=== PATIENT | male | born 1965 | race Native Hawaiian/Other Pacific Islander ===

== ENCOUNTER 2021-06-13 19:49 | Inpatient (IN) | payer SELFPAY ==
[2021-06-14 00:16] LABS: Hematocrit 35.9 % (35.5-45.6); Hemoglobin 12.4 gm/dl (11.8-15.2); Mean Corpuscular HGB Conc 35 % (32-34); Mean Corpuscular Volume 97 fl (84-94); Platelet Count 388 K/mm3 (140-440); Red Cell Distribution Width 12.1 % (13.2-15.2)
[2021-06-14 00:35] LABS: Alanine Aminotransferase 111 units/L (7-56); Albumin 3.1 g/dL (3.9-5); Bilirubin,Direct 0.3 mg/dL (0-0.2); Blood Urea Nitrogen 9 mg/dL (9-20); Calcium 7.6 mg/dL (8.4-10.2); Hemolysis Index 19
[2021-06-14 00:37] LABS: BUN/Creatinine Ratio 23
--- NOTE | 2021-06-14 01:15 | XRay Report ---
CHEST 1 VIEW INDICATION / CLINICAL INFORMATION: sob. COMPARISON: None available. FINDINGS: SUPPORT DEVICES: None. HEART / MEDIASTINUM: No significant abnormality. LUNGS / PLEURA: Nonspecific bilateral interstitial prominence without focal consolidation. A componen t of chronic disease is thought to exist. BONES: No significant osseous abnormality. ADDITIONAL FINDINGS: No significant additional findings. IMPRESSION: 1. No active cardiopulmonary disease. Signer Name: Markus Lira II, MD Signed: 06/14/2021 1:10 AM Workstation Name: [id number]
--- NOTE | 2021-06-14 02:16 | Cat Scan Report ---
CT HEAD WITHOUT CONTRAST INDICATION / CLINICAL INFORMATION: AMS. TECHNIQUE: CT head was performed without administration of intravenous contrast. All CT scans at this location are performed using CT dose reduction for ALARA by means of automated exposure control. COMPARISON: None available. FINDINGS: CEREBRAL HEMISPHERES: Generalized atrophy and bilateral regions of periventricular white matter hypoa ttenuation compatible with microvascular ischemia are demonstrated. No midline shift. Basal cisterns patent. HEMORRHAGE: None. CEREBELLUM / BRAINSTEM: No significant abnormality. ORBITS: No significant abnormality. SOFT TISSUES: No significant abnormality. SKULL: No significant abnormality. PARANASAL SINUSES / MASTOID AIR CELLS: Mild mucoperiosteal thickening of the bilateral maxillary sinu ses. Partial opacification of anterior ethmoid air cells. ADDITIONAL FINDINGS: None. IMPRESSION: 1. No acute intracranial abnormality. Signer Name: Markus Lira II, MD Signed: 06/14/2021 2:11 AM Workstation Name: [id number]
--- NOTE | 2021-06-14 02:22 | Cat Scan Report ---
CT ABDOMEN AND PELVIS WITH CONTRAST INDICATION / CLINICAL INFORMATION: Lower ABD Pain. TECHNIQUE: Axial CT images were obtained through the abdomen and pelvis after 100 cc Omnipaque [address] scans at this location are performed using CT dose reduction for ALARA by means of automated exposure control. COMPARISON: None available. FINDINGS: LOWER CHEST: Moderate dependent atelectatic changes are noted within the lower lobes. LIVER: Mild hepatic steatosis and excluded. Portal veins patent. Hepatic veins patent. GALLBLADDER: Contracted BILE DUCTS: No significant abnormality. SPLEEN: No significant abnormality. PANCREAS: No significant abnormality. ADRENALS: No significant abnormality. KIDNEYS/URETERS: Mild to moderate bilateral hydronephrosis. No urolithiasis. STOMACH / DUODENUM / SMALL BOWEL: The stomach, duodenum, and small bowel demonstrate no significant a bnormality. No specific abnormality of the mesentery demonstrated. COLON: No significant abnormality. APPENDIX: No significant abnormality. PERITONEUM: No free air or free fluid are present within the abdomen or pelvis. LYMPH NODES: No significant adenopathy. AORTA / ARTERIES: Mild atherosclerotic calcification without acute abnormality. IVC / VEINS: No significant abnormality. URINARY BLADDER: Moderate to severe distention of the urinary bladder is demonstrated without focal l esion of the bladder wall. REPRODUCTIVE ORGANS: Prostate grossly normal in size. ADDITIONAL ABDOMINAL/PELVIC FINDINGS: The left psoas appears enlarged with central hypoattenuating re gion along the anterior margin as demonstrated image #110. This lesion measures 21 x 18 mm. This abut s the left anterolateral L4-5 interspace, no significant abnormality of the interspace and no obvious pannus is associated. SKELETAL SYSTEM: Multilevel degenerative changes of the lumbar spine are present with loss of interve rtebral disc space at L5-S1 moderate to severe back disc phenomenon present. Multilevel facet arthrop athy mild to moderate within the lower lumbar spine. IMPRESSION: 1. Expansile appearance of the left psoas muscle with central hypoattenuating region possibly reflect autumn of abscess, hematoma not excluded. 2. Moderately severe distention of the urinary bladder with associated bilateral hydronephrosis helga tible with a component of reflux. Decompression with Banks catheter recommended. 3. No obvious obstructing lesion within the prostate or bladder base to suggest source of bladder out let obstruction. Neurogenic bladder could be considered. Signer Name: Markus Lira II, MD Signed: 06/14/2021 2:18 AM Workstation Name: [id number]
--- NOTE | 2021-06-14 02:33 | Emergency Department Report ---
ED Altered Mental Status HPI - General Chief Complaint: Pain General Stated Complaint: BODY PAIN Time Seen by Provider: 06/13/21 23:17 Source: patient Mode of arrival: Ambulatory Limitations: No Limitations - History of Present Illness Initial Comments: 59-year-old male presents emergency department with his family who reports she has been having 1 to 2-week history of progressively worsening weakness, fatigue, shortness of breath with occasional chest pain dizziness and sometimes altered mental status which has been waxing and waning and progressively worsening fashion since the onset. At the beginning of this month he was ambulatory on his own power and behaving normally and fully functional which significantly changed in the last 2 weeks currently over the last 2 to 3 days he has been unable to stand up or move his legs without assistance. A reports no fever, chills, sweats. No chest pain palpitation nausea vomiting has been having some increased urinary frequency. MD Complaint: altered mental status, confusion, weakness -: Gradual Associated Symptoms: denies other symptoms - Related Data Allergies Allergy/AdvReac Type Severity Reaction Status Date / Time No Known Allergies Allergy Verified 06/13/21 20:55 ED Review of Systems ROS: Stated complaint: BODY PAIN Other details as noted in HPI Comment: All other systems reviewed and negative ED Past Medical Hx - Past Medical History Previous Medical History?: No - Surgical History Past Surgical History?: No - Social History Smoking Status: Never Smoker Substance Use Type: None ED Physical Exam - General Limitations: No Limitations - Level of Consciousness 1a. Level of Consciousness: alert/keenly responsive - LOC Questions 1b. LOC Questions: answers both correctly - LOC Command 1c. LOC Commands: performs tasks correctly - Best Gaze 2. Best Gaze: normal - Visual 3. Visual: no visual loss - Facial Palsy 4. Facial Palsy: normal symmetrical movement - Motor Arm 5a. Motor Arm Left: no drift 5b. Motor Arm Right: no drift - Motor Leg 6a. Motor Leg Left: drift 6b. Motor Leg Right: drift - Limb Ataxia 7. Limb Ataxia: absent - Sensory 8. Sensory: normal - Best Language 9. Best Language: no aphasia - Dysarthria 10. Dysarthria: normal - Extinction and Inattention 11. Extinction/Inattention: no abnormality - Scoring Total Score: 2 Stroke Severity: Minor Stroke ED Course Vital Signs 06/13/21 06/14/21 20:49 03:34 Temperature 100.0 F H Pulse Rate 101 H 88 Respiratory 18 18 Rate Blood Pressure 137/83 Blood Pressure 125/85 [Left] O2 Sat by Pulse 99 100 Oximetry - Lab Data Result diagrams: 06/14/21 00:01 06/14/21 00:01 Lab Results 06/14/21 06/14/21 06/14/21 Range/Units 00:01 00:01 00:01 WBC 18.6 H (4.5-11.0) K/mm3 RBC 3.70 (3.65-5.03) M/mm3 Hgb 12.4 (11.8-15.2) gm/dl Hct 35.9 (35.5-45.6) % MCV 97 H (84-94) fl MCH 34 H (28-32) pg MCHC 35 H (32-34) % RDW 12.1 L (13.2-15.2) % Plt Count 388 (140-440) K/mm3 Add Manual Diff Complete Total Counted 100 Seg Neuts % (Manual) 90.0 H (40.0-70.0) % Band Neutrophils % 0 % Lymphocytes % (Manual) 5.0 L (13.4-35.0) % Reactive Lymphs % (Man) 0 % Monocytes % (Manual) 5.0 (0.0-7.3) % Eosinophils % (Manual) 0 (0.0-4.3) % Basophils % (Manual) 0 (0.0-1.8) % Metamyelocytes % 0 % Myelocytes % 0 % Promyelocytes % 0 % Blast Cells % 0 % Nucleated RBC % Not Reportable Seg Neutrophils # Man 16.7 H (1.8-7.7) K/mm3 Band Neutrophils # 0.0 K/mm3 Lymphocytes # (Manual) 0.9 L (1.2-5.4) K/mm3 Abs React Lymphs (Man) 0.0 K/mm3 Monocytes # (Manual) 0.9 H (0.0-0.8) K/mm3 Eosinophils # (Manual) 0.0 (0.0-0.4) K/mm3 Basophils # (Manual) 0.0 (0.0-0.1) K/mm3 Metamyelocytes # 0.0 K/mm3 Myelocytes # 0.0 K/mm3 Promyelocytes # 0.0 K/mm3 Blast Cells # 0.0 K/mm3 WBC Morphology Not Reportable Hypersegmented Neuts Not Reportable Hyposegmented Neuts Not Reportable Hypogranular Neuts Not Reportable Smudge Cells Not Reportable Toxic Granulation Not Reportable Toxic Vacuolation Not Reportable Dohle Bodies Not Reportable Pelger-Huet Anomaly Not Reportable Reva Rods Not Reportable Platelet Estimate Consistent w auto Clumped Platelets Not Reportable Plt Clumps, EDTA Not Reportable Large Platelets Not Reportable Giant Platelets Not Reportable Platelet Satelliting Not Reportable Plt Morphology Comment Not Reportable RBC Morphology Not Reportable Dimorphic RBCs Not Reportable Polychromasia Not Reportable Hypochromasia Not Reportable Poikilocytosis Not Reportable Anisocytosis 1+ Microcytosis Not Reportable Macrocytosis Not Reportable Spherocytes Not Reportable Pappenheimer Bodies Not Reportable Sickle Cells Not Reportable Target Cells Not Reportable Tear Drop Cells Not Reportable Ovalocytes Not Reportable Helmet Cells Not Reportable [place]osta-[place] Bodies Not Reportable [place] Rings Not Reportable [place] Cells Not Reportable Bite Cells Not Reportable Crenated Cell Not Reportable Elliptocytes Not Reportable Acanthocytes (Spur) Not Reportable Rouleaux Not Reportable Hemoglobin C Crystals Not Reportable Schistocytes Not Reportable Malaria parasites Not Reportable Warner Bodies Not Reportable Hem Pathologist Commnt No Sodium 122 L (137-145) mmol/L Potassium 3.4 L (3.6-5.0) mmol/L Chloride 79.0 L (98-107) mmol/L Carbon Dioxide 29 (22-30) mmol/L Anion Gap 17 mmol/L BUN 9 (9-20) mg/dL Creatinine 0.4 L (0.8-1.3) mg/dL Estimated GFR > 60 ml/min BUN/Creatinine Ratio 23 % Glucose 122 H (75-100) mg/dL Lactic Acid (0.7-2.0) mmol/L Calcium 7.6 L (8.4-10.2) mg/dL Magnesium (1.7-2.3) mg/dL Total Bilirubin 1.00 (0.1-1.2) mg/dL Direct Bilirubin 0.3 H (0-0.2) mg/dL Indirect Bilirubin 0.7 mg/dL AST 112 H (5-40) units/L ALT 111 H (7-56) units/L Alkaline Phosphatase 129 (35-129) units/L Ammonia (25-60) umol/L Troponin T < 0.010 (0.00-0.029) ng/mL Total Protein 6.6 (6.3-8.2) g/dL Albumin 3.1 L (3.9-5) g/dL Albumin/Globulin Ratio 0.9 % Lipase 49 (13-60) units/L Urine Color (Yellow) Urine Turbidity (Clear) Urine pH (5.0-7.0) Ur Specific [place] (1.003-1.030) Urine Protein (Negative) mg/dL Urine Glucose (UA) (Negative) mg/dL Urine Ketones (Negative) mg/dL Urine Blood (Negative) Urine Nitrite (Negative) Urine Bilirubin (Negative) Urine Urobilinogen (<2.0) mg/dL Ur Leukocyte Esterase (Negative) Urine WBC (Auto) (0.0-6.0) /HPF Urine RBC (Auto) (0.0-6.0) /HPF U Epithel Cells (Auto) (0-13.0) /HPF Urine Bacteria (Auto) (Negative) /HPF 06/14/21 06/14/21 06/14/21 Range/Units 00:01 00:01 04:30 WBC (4.5-11.0) K/mm3 RBC (3.65-5.03) M/mm3 Hgb (11.8-15.2) gm/dl Hct (35.5-45.6) % MCV (84-94) fl MCH (28-32) pg MCHC (32-34) % RDW (13.2-15.2) % Plt Count (140-440) K/mm3 Add Manual Diff Total Counted Seg Neuts % (Manual) (40.0-70.0) % Band Neutrophils % % Lymphocytes % (Manual) (13.4-35.0) % Reactive Lymphs % (Man) % Monocytes % (Manual) (0.0-7.3) % Eosinophils % (Manual) (0.0-4.3) % Basophils % (Manual) (0.0-1.8) % Metamyelocytes % % Myelocytes % % Promyelocytes % % Blast Cells % % Nucleated RBC % Seg Neutrophils # Man (1.8-7.7) K/mm3 Band Neutrophils # K/mm3 Lymphocytes # (Manual) (1.2-5.4) K/mm3 Abs React Lymphs (Man) K/mm3 Monocytes # (Manual) (0.0-0.8) K/mm3 Eosinophils # (Manual) (0.0-0.4) K/mm3 Basophils # (Manual) (0.0-0.1) K/mm3 Metamyelocytes # K/mm3 Myelocytes # K/mm3 Promyelocytes # K/mm3 Blast Cells # K/mm3 WBC Morphology Hypersegmented Neuts Hyposegmented Neuts Hypogranular Neuts Smudge Cells Toxic Granulation Toxic Vacuolation Dohle Bodies Pelger-Huet Anomaly Reva Rods Platelet Estimate Clumped Platelets Plt Clumps, EDTA Large Platelets Giant Platelets Platelet Satelliting Plt Morphology Comment RBC Morphology Dimorphic RBCs Polychromasia Hypochromasia Poikilocytosis Anisocytosis Microcytosis Macrocytosis Spherocytes Pappenheimer Bodies Sickle Cells Target Cells Tear Drop Cells Ovalocytes Helmet Cells Acosta-Laona Bodies [place] Rings Glo Cells Bite Cells Crenated Cell Elliptocytes Acanthocytes (Spur) Rouleaux Hemoglobin C Crystals Schistocytes Malaria parasites Warner Bodies Hem Pathologist Commnt Sodium (137-145) mmol/L Potassium (3.6-5.0) mmol/L Chloride (98-107) mmol/L Carbon Dioxide (22-30) mmol/L Anion Gap mmol/L BUN (9-20) mg/dL Creatinine (0.8-1.3) mg/dL Estimated GFR ml/min BUN/Creatinine Ratio % Glucose (75-100) mg/dL Lactic Acid 1.60 (0.7-2.0) mmol/L Calcium (8.4-10.2) mg/dL Magnesium 2.40 H (1.7-2.3) mg/dL Total Bilirubin (0.1-1.2) mg/dL Direct Bilirubin (0-0.2) mg/dL Indirect Bilirubin mg/dL AST (5-40) units/L ALT (7-56) units/L Alkaline Phosphatase (35-129) units/L Ammonia 28.0 (25-60) umol/L Troponin T (0.00-0.029) ng/mL Total Protein (6.3-8.2) g/dL Albumin (3.9-5) g/dL Albumin/Globulin Ratio % Lipase (13-60) units/L Urine Color (Yellow) Urine Turbidity (Clear) Urine pH (5.0-7.0) Ur Specific [place] (1.003-1.030) Urine Protein (Negative) mg/dL Urine Glucose (UA) (Negative) mg/dL Urine Ketones (Negative) mg/dL Urine Blood (Negative) Urine Nitrite (Negative) Urine Bilirubin (Negative) Urine Urobilinogen (<2.0) mg/dL Ur Leukocyte Esterase (Negative) Urine WBC (Auto) (0.0-6.0) /HPF Urine RBC (Auto) (0.0-6.0) /HPF U Epithel Cells (Auto) (0-13.0) /HPF Urine Bacteria (Auto) (Negative) /HPF 06/14/21 Range/Units Unknown WBC (4.5-11.0) K/mm3 RBC (3.65-5.03) M/mm3 Hgb (11.8-15.2) gm/dl Hct (35.5-45.6) % MCV (84-94) fl MCH (28-32) pg MCHC (32-34) % RDW (13.2-15.2) % Plt Count (140-440) K/mm3 Add Manual Diff Total Counted Seg Neuts % (Manual) (40.0-70.0) % Band Neutrophils % % Lymphocytes % (Manual) (13.4-35.0) % Reactive Lymphs % (Man) % Monocytes % (Manual) (0.0-7.3) % Eosinophils % (Manual) (0.0-4.3) % Basophils % (Manual) (0.0-1.8) % Metamyelocytes % % Myelocytes % % Promyelocytes % % Blast Cells % % Nucleated RBC % Seg Neutrophils # Man (1.8-7.7) K/mm3 Band Neutrophils # K/mm3 Lymphocytes # (Manual) (1.2-5.4) K/mm3 Abs React Lymphs (Man) K/mm3 Monocytes # (Manual) (0.0-0.8) K/mm3 Eosinophils # (Manual) (0.0-0.4) K/mm3 Basophils # (Manual) (0.0-0.1) K/mm3 Metamyelocytes # K/mm3 Myelocytes # K/mm3 Promyelocytes # K/mm3 Blast Cells # K/mm3 WBC Morphology Hypersegmented Neuts Hyposegmented Neuts Hypogranular Neuts Smudge Cells Toxic Granulation Toxic Vacuolation Dohle Bodies Pelger-Huet Anomaly Reva Rods Platelet Estimate Clumped Platelets Plt Clumps, EDTA Large Platelets Giant Platelets Platelet Satelliting Plt Morphology Comment RBC Morphology Dimorphic RBCs Polychromasia Hypochromasia Poikilocytosis Anisocytosis Microcytosis Macrocytosis Spherocytes Pappenheimer Bodies Sickle Cells Target Cells Tear Drop Cells Ovalocytes Helmet Cells Acosta-Laona Bodies [place] Rings Glo Cells Bite Cells Crenated Cell Elliptocytes Acanthocytes (Spur) Rouleaux Hemoglobin C Crystals Schistocytes Malaria parasites Warner Bodies Hem Pathologist Commnt Sodium (137-145) mmol/L Potassium (3.6-5.0) mmol/L Chloride (98-107) mmol/L Carbon Dioxide (22-30) mmol/L Anion Gap mmol/L BUN (9-20) mg/dL Creatinine (0.8-1.3) mg/dL Estimated GFR ml/min BUN/Creatinine Ratio % Glucose (75-100) mg/dL Lactic Acid (0.7-2.0) mmol/L Calcium (8.4-10.2) mg/dL Magnesium (1.7-2.3) mg/dL Total Bilirubin (0.1-1.2) mg/dL Direct Bilirubin (0-0.2) mg/dL Indirect Bilirubin mg/dL AST (5-40) units/L ALT (7-56) units/L Alkaline Phosphatase (35-129) units/L Ammonia (25-60) umol/L Troponin T (0.00-0.029) ng/mL Total Protein (6.3-8.2) g/dL Albumin (3.9-5) g/dL Albumin/Globulin Ratio % Lipase (13-60) units/L Urine Color Nga (Yellow) Urine Turbidity Slightly-cloudy (Clear) Urine pH 6.0 (5.0-7.0) Ur Specific [place] 1.016 (1.003-1.030) Urine Protein 30 mg/dl (Negative) mg/dL Urine Glucose (UA) Neg (Negative) mg/dL Urine Ketones Neg (Negative) mg/dL Urine Blood Mod (Negative) Urine Nitrite Pos (Negative) Urine Bilirubin Neg (Negative) Urine Urobilinogen 4.0 (<2.0) mg/dL Ur Leukocyte Esterase Sm (Negative) Urine WBC (Auto) 31.0 H (0.0-6.0) /HPF Urine RBC (Auto) 1.0 (0.0-6.0) /HPF U Epithel Cells (Auto) < 1.0 (0-13.0) /HPF Urine Bacteria (Auto) 1+ (Negative) /HPF - Radiology Data Radiology results: report reviewed [facility] [address] [place] [address] Cat Scan Report Signed Patient: RANULFO GUERRIER MR#: [id number] : 1965 Acct:[id number] Age/Sex: 55 / M ADM Date: 06/13/21 Loc: ED Attending Dr: Ordering Physician: MIREYA DAIGLE Date of Service: 06/14/21 Procedure(s): CT head/brain wo con Accession Number(s): [id number] cc: MIREYA DAIGLE CT HEAD WITHOUT CONTRAST INDICATION / CLINICAL INFORMATION: AMS. TECHNIQUE: CT head was performed without administration of intravenous contrast. All CT scans at this location are performed using CT dose reduction for ALARA by means of automated exposure control. COMPARISON: None available. FINDINGS: CEREBRAL HEMISPHERES: Generalized atrophy and bilateral regions of periventricular white matter hypoattenuation compatible with microvascular ischemia are demonstrated. No midline shift. Basal cisterns patent. HEMORRHAGE: None. CEREBELLUM / BRAINSTEM: No significant abnormality. ORBITS: No significant abnormality. SOFT TISSUES: No significant abnormality. SKULL: No significant abnormality. PARANASAL SINUSES / MASTOID AIR CELLS: Mild mucoperiosteal thickening of the bilateral maxillary sinuses. Partial opacification of anterior ethmoid air cells. ADDITIONAL FINDINGS: None. IMPRESSION: 1. No acute intracranial abnormality. Signer Name: Fabby Mendoza II, MD Signed: 06/14/2021 2:11 AM Workstation Name: [id number] Transcribed By: JOEY Dictated By: FABBY MENDOZA II, MD Electronically Authenticated By: FABBY MENDOZA II, MD Signed Date/Time: 06/14/21210 DD/ 9 TD/TT: [address] [place] [address] Cat Scan Report Signed Patient: RANULFO GUERRIER MR#: [id number] : 1965 Acct:[id number] Age/Sex: 55 / M ADM Date: 06/13/21 Loc: ED Attending Dr: Ordering Physician: MIREYA DAIGLE Date of Service: 06/14/21 Procedure(s): CT abdomen pelvis w con Accession Number(s): [id number] cc: MIREYA DAIGLE CT ABDOMEN AND PELVIS WITH CONTRAST INDICATION / CLINICAL INFORMATION: Lower ABD Pain. TECHNIQUE: Axial CT images were obtained through the abdomen and pelvis after 100 cc Omnipaque [address] scans at this location are performed using CT dose reduction for ALARA by means of automated exposure control. COMPARISON: None available. FINDINGS: LOWER CHEST: Moderate dependent atelectatic changes are noted within the lower lobes. LIVER: Mild hepatic steatosis and excluded. Portal veins patent. Hepatic veins patent. GALLBLADDER: Contracted BILE DUCTS: No significant abnormality. SPLEEN: No significant abnormality. PANCREAS: No significant abnormality. ADRENALS: No significant abnormality. KIDNEYS/URETERS: Mild to moderate bilateral hydronephrosis. No urolithiasis. STOMACH / DUODENUM / SMALL BOWEL: The stomach, duodenum, and small bowel demonstrate no significant abnormality. No specific abnormality of the mesentery demonstrated. COLON: No significant abnormality. APPENDIX: No significant abnormality. PERITONEUM: No free air or free fluid are present within the abdomen or pelvis. LYMPH NODES: No significant adenopathy. AORTA / ARTERIES: Mild atherosclerotic calcification without acute abnormality. IVC / VEINS: No significant abnormality. URINARY BLADDER: Moderate to severe distention of the urinary bladder is demonstrated without focal lesion of the bladder wall. REPRODUCTIVE ORGANS: Prostate grossly normal in size. ADDITIONAL ABDOMINAL/PELVIC FINDINGS: The left psoas appears enlarged with central hypoattenuating region along the anterior margin as demonstrated image #110. This lesion measures 21 x 18 mm. This abuts the left anterolateral L4-5 interspace, no significant abnormality of the interspace and no obvious pannus is associated. SKELETAL SYSTEM: Multilevel degenerative changes of the lumbar spine are present with loss of intervertebral disc space at L5-S1 moderate to severe back disc phenomenon present. Multilevel facet arthropathy mild to moderate within the lower lumbar spine. IMPRESSION: 1. Expansile appearance of the left psoas muscle with central hypoattenuating region possibly reflective of abscess, hematoma not excluded. 2. Moderately severe distention of the urinary bladder with associated bilateral hydronephrosis compatible with a component of reflux. Decompression with Banks catheter recommended. 3. No obvious obstructing lesion within the prostate or bladder base to suggest source of bladder outlet obstruction. Neurogenic bladder could be considered. Signer Name: Fabby Mendoza II, MD Signed: 06/14/2021 2:18 AM Workstation Name: [id number] Transcribed By: JOEY Dictated By: FABBY MENDOZA II, MD Electronically Authenticated By: FABBY MENDOZA II, MD Signed Date/Time: 06/14/21217 Critical care attestation.: If time is entered above; I have spent that time in minutes in the direct care of this critically ill patient, excluding procedure time. ED Disposition Clinical Impression: Hyponatremia, Generalized weakness, Transaminitis Disposition: HOME / SELF CARE / HOMELESS Is pt being admited?: Yes Does the pt Need Aspirin: No Condition: Stable Referrals: USAMA GARCIA MD [Primary Care Provider] - 3-5 Days
[2021-06-14 03:23] LABS: Anisocytosis 1+; Basophils % (Manual) 0 % (0.0-1.8); Eosinophils % (Manual) 0 % (0.0-4.3); Total Cells Counted 100
[2021-06-14 03:24] LABS: Platelet Estimate Consistent w Auto
[2021-06-14] MEDS ORDERED: ACETAMINOPHEN 325 MG TAB PO PRN (04:30)
[2021-06-14] MEDS ORDERED: MORPHINE 4 MG/1 ML INJ IV PRN (04:30)
[2021-06-14] MEDS ORDERED: LORazepam 2 MG/ML VIAL IV PRN ×3 (04:30)
--- NOTE | 2021-06-14 04:42 | History and Physical Report ---
History of Present Illness Date of examination: 06/14/21 Date of admission: 06/14/2021 Chief complaint: Inability to ambulate Generalized weakness History of present illness: 55-year-old male seen in the emergency room today complaining of worsening generalized weakness over the past 2 weeks. Patient has been having generalized fatigue, occasional dizziness and shortness of breath over the past 2 weeks. According to family who was by the bedside, patient also had some changes in mental status which has been intermittent. He was said to be ambulatory about 2 weeks ago but suddenly became unable to ambulate and move his legs without assistance. Patient was also said to have had a fall few days ago because he lost his balance. He has been no fever or chills, no headache and no diaphoresis. No nausea or vomiting and no abdominal pain. Daughter indicates that patient has not been able to use the bathroom lately. Work-up in the emergency room today, CT of the head shows no acute intercranial abnormality. Labs reveals hyponatremia of 122 and hypokalemia of 3.4. LFTs were elevated. Chest x-ray shows no active cardiopulmonary disease. CT of the abdomen and pelvis shows expansive appearance of the left psoas muscle with central hypo-attenuating region possibly reflective of abscess, hematoma not excluded. Moderately severe distention of the urinary bladder with associated bilateral hydronephrosis compatible with a component of reflux. Decompression with Banks catheter recommended. No obvious obstructing lesion within the prostate or bladder base to suggest source of bladder outlet obstruction. Neurogenic bladder could be considered. Past History Past Medical History: No medical history Past Surgical History: No surgical history Social history: alcohol abuse (Drinks alcohol almost on a daily basis) Family history: no significant family history Medications and Allergies Allergies Allergy/AdvReac Type Severity Reaction Status Date / Time No Known Allergies Allergy Verified 06/13/21 20:55 Active Meds: Active Medications Acetaminophen (Acetaminophen 325 Mg Tab) 650 mg PO Q4H PRN PRN Reason: Pain MILD(1-3)/Fever >100.5/RIGGINS Heparin Sodium (Porcine) (Heparin 5,000 Unit/1 Ml Vial) 5,000 unit SUB-Q Q8HR ALESSIO Sodium Chloride (Nacl 0.9% 1000 Ml) 1,000 mls @ 125 mls/hr IV DIRECT ALESSIO Piperacillin Sod/Tazobactam Sod (Zosyn/Ns 4.5gm/100ml) 4.5 gm in 100 mls @ 200 mls/hr IV Q8H ALESSIO; Protocol Lorazepam (Lorazepam 2 Mg/Ml Vial) 2 mg IV Q1H PRN PRN Reason: CIWA-Ar 8-15 Lorazepam (Lorazepam 2 Mg/Ml Vial) 4 mg IV Q1H PRN PRN Reason: CIWA-Ar 16-25 Lorazepam (Lorazepam 2 Mg/Ml Vial) 4 mg IV Q15MIN PRN PRN Reason: CIWA-Ar >25 Magnesium Hydroxide (Magnesium Hydroxide (Mom) Oral Liqd Udc) 30 ml PO Q4H PRN PRN Reason: Constipation Morphine Sulfate (Morphine 2 Mg/1 Ml Inj) 2 mg IV Q4H PRN PRN Reason: Pain, Moderate (4-6) Morphine Sulfate (Morphine 4 Mg/1 Ml Inj) 4 mg IV Q4H PRN PRN Reason: Pain , Severe (7-10) Ondansetron HCl (Ondansetron 4 Mg/2 Ml Inj) 4 mg IV Q8H PRN PRN Reason: Nausea And Vomiting Sodium Chloride (Sodium Chloride 0.9% 10 Ml Flush Syringe) 10 ml IV BID ALESSIO Sodium Chloride (Sodium Chloride 0.9% 10 Ml Flush Syringe) 10 ml IV PRN PRN PRN Reason: LINE FLUSH Review of Systems Constitutional: weakness, no fever, no chills Ears, nose, mouth and throat: no nasal congestion, no sore throat Cardiovascular: no chest pain, no orthopnea, no palpitations Respiratory: no cough, no shortness of breath Gastrointestinal: no abdominal pain, no nausea, no vomiting, no diarrhea, no constipation Genitourinary Male: urinary retention, no dysuria, no hematuria, no flank pain, no urinary frequency Musculoskeletal: other (Recent fall), no neck pain, no low back pain Integumentary: no rash, no pruritis Neurological: no headaches, no confusion Psychiatric: no anxiety, no depression Endocrine: no polyphagia, no polydipsia, no polyuria, no nocturia Exam - Constitutional Vitals: Temp Pulse Resp BP Pulse Ox 100.0 F H 88 18 125/85 100 06/13/21 20:49 06/14/21 03:34 06/14/21 03:34 06/14/21 03:34 06/14/21 03:34 General appearance: Present: no acute distress, well-nourished - EENT Eyes: Present: PERRL, EOM intact, scleral icterus (tinge of jaundice) ENT: hearing intact, clear oral mucosa, dentition normal - Neck Neck: Present: normal ROM - Respiratory Respiratory effort: normal Respiratory: bilateral: CTA - Cardiovascular Rhythm: regular Heart Sounds: Present: S1 & S2. Absent: gallop, systolic murmur, diastolic murmur, rub, click - Extremities Extremities: no ischemia, pulses intact, pulses symmetrical, No edema, normal temperature, normal color, Full ROM Peripheral Pulses: within normal limits - Abdominal General gastrointestinal: Present: soft, non-tender, distended, normal bowel sounds. Absent: mass - Integumentary Integumentary: Present: clear, warm, dry, normal turgor. Absent: rash - Musculoskeletal Musculoskeletal: strength equal bilaterally - Psychiatric Psychiatric: appropriate mood/affect, intact judgment & insight, memory intact, cooperative - Neurologic Neurologic: CNII-XII intact, no focal deficits, moves all extremities HEART Score - HEART Score Troponin: Troponin T < 0.010 ng/mL (0.00-0.029) 06/14/21 00:01 Results - Labs CBC & Chem 7: 06/14/21 00:01 06/14/21 00:01 Labs: Abnormal lab results 06/14/21 06/14/21 Range/Units 00:01 00:01 WBC 18.6 H (4.5-11.0) K/mm3 MCV 97 H (84-94) fl MCH 34 H (28-32) pg MCHC 35 H (32-34) % RDW 12.1 L (13.2-15.2) % Seg Neuts % (Manual) 90.0 H (40.0-70.0) % Lymphocytes % (Manual) 5.0 L (13.4-35.0) % Seg Neutrophils # Man 16.7 H (1.8-7.7) K/mm3 Lymphocytes # (Manual) 0.9 L (1.2-5.4) K/mm3 Monocytes # (Manual) 0.9 H (0.0-0.8) K/mm3 Sodium 122 L (137-145) mmol/L Potassium 3.4 L (3.6-5.0) mmol/L Chloride 79.0 L (98-107) mmol/L Creatinine 0.4 L (0.8-1.3) mg/dL Glucose 122 H (75-100) mg/dL Calcium 7.6 L (8.4-10.2) mg/dL Direct Bilirubin 0.3 H (0-0.2) mg/dL AST 112 H (5-40) units/L ALT 111 H (7-56) units/L Albumin 3.1 L (3.9-5) g/dL Assessment and Plan - Patient Problems (1) Hyponatremia Current Visit: Yes Status: Acute Plan to address problem: Patient placed on IV fluid normal saline. Will monitor chemistry. (2) Psoas abscess, left Current Visit: Yes Status: Acute Plan to address problem: Consult placed to general surgery for evaluation. Patient placed on empiric IV antibiotics. (3) Alcohol abuse Current Visit: Yes Status: Acute Plan to address problem: Patient placed on CIWA protocol. (4) Transaminitis Current Visit: Yes Status: Acute Plan to address problem: Possibly related to the alcohol abuse. Will monitor for LFTs. Consult placed to armor reconnaissance vehicle driver for evaluation and recommendations. (5) Hypokalemia Current Visit: Yes Status: Acute Plan to address problem: Potassium will be repleted and will monitor chemistry. (6) DVT prophylaxis Current Visit: Yes Status: Acute Plan to address problem: Will place on sequential compression device. (7) Full code status Current Visit: Yes Status: Acute Plan to address problem: Patient is full code.
[2021-06-14] MEDS ORDERED: VANCOMYCIN PHARMACY TO DOSE IV SCH (05:00)
[2021-06-14] MEDS ORDERED: PIPERACIL/TAZOBACTA 4.5/NS 100 4.5 GM/100 ML VIAL IV SCH (05:00)
[2021-06-14] MEDS ORDERED: POTASSIUM CHLORIDE 10 MEQ 10 MEQ/100 ML BAG IV SCH (05:00)
[2021-06-14 05:11] LABS: Bacteria,Urine 1+ /HPF (Negative); Bilirubin,Urine NEG (Negative); Blood,Urine MOD (Negative); Color,Urine Amber (Yellow)
[2021-06-14] MEDS ORDERED: CEFEPIME/NS 2 GM/100 ML 2 GM/100 ML BAG IV SCH (06:00)
[2021-06-14] MEDS ORDERED: HEPARIN 5,000 UNIT/1 ML VIAL SUB-Q SCH (06:00)
[2021-06-14] MEDS ORDERED: VANCOMYCIN 1,500 MG in SODIUM CHLORIDE 0.9% 500 ML 500 ML IV SCH (07:00)
--- NOTE | 2021-06-14 07:23 | Consultation ---
History of Present Illness Consult date: 06/14/21 Reason for consult: abdominal pain - History of present illness History of present illness: 59-year-old male presents emergency department with his family who reports she has been having 1 to 2-week history of progressively worsening weakness, fatigue, shortness of breath with occasional chest pain dizziness and sometimes altered mental status which has been waxing and waning and progressively worsening fashion since the onset. At the beginning of this month he was ambulatory on his own power and behaving normally and fully functional which significantly changed in the last 2 weeks currently over the last 2 to 3 days he has been unable to stand up or move his legs without assistance. A reports no fever, chills, sweats. No chest pain palpitation nausea vomiting has been having some increased urinary frequency. CT of abdomen is showing a possible psoas muscle abscess on the left side. Whi te count is elevated 18,000. Past History Past Medical History: No medical history Past Surgical History: No surgical history Social history: alcohol abuse (Drinks alcohol almost on a daily basis) Family history: no significant family history Medications and Allergies Allergies Allergy/AdvReac Type Severity Reaction Status Date / Time No Known Allergies Allergy Verified 06/13/21 20:55 Active Meds: Active Medications Acetaminophen (Acetaminophen 325 Mg Tab) 650 mg PO Q4H PRN PRN Reason: Pain MILD(1-3)/Fever >100.5/RIGGINS Sodium Chloride (Nacl 0.9% 1000 Ml) 1,000 mls @ 125 mls/hr IV DIRECT ALESSIO Potassium Chloride (Kcl 10meq/100ml) 10 meq in 100 mls @ 100 mls/hr IV ONCE@0500 [facility] Stop: 06/14/21 08:00 Last Admin: 06/14/21 06:25 Dose: 100 mls/hr Cefepime HCl (Cefepime/Ns 2 Gm/100 Ml) 2 gm in 100 mls @ 200 mls/hr IV Q12H [facility]; Protocol Vancomycin HCl 1,500 mg/ (Sodium Chloride) 530 mls @ 333.333 mls/hr IV ONCE@0700 [facility] Stop: 06/14/21 11:00 Vancomycin HCl (Vancomycin/Ns 1 Gm/250 Ml) 1 gm in 250 mls @ 166.667 mls/hr IV Q12H [facility] Metronidazole (Flagyl 500 Mg/100 Ml) 500 mg in 100 mls @ 100 mls/hr IV Q8H ALESSIO; Protocol Lorazepam (Lorazepam 2 Mg/Ml Vial) 2 mg IV Q1H PRN PRN Reason: CIWA-Ar 8-15 Lorazepam (Lorazepam 2 Mg/Ml Vial) 4 mg IV Q1H PRN PRN Reason: CIWA-Ar 16-25 Lorazepam (Lorazepam 2 Mg/Ml Vial) 4 mg IV Q15MIN PRN PRN Reason: CIWA-Ar >25 Magnesium Hydroxide (Magnesium Hydroxide (Mom) Oral Liqd Udc) 30 ml PO Q4H PRN PRN Reason: Constipation Morphine Sulfate (Morphine 2 Mg/1 Ml Inj) 2 mg IV Q4H PRN PRN Reason: Pain, Moderate (4-6) Morphine Sulfate (Morphine 4 Mg/1 Ml Inj) 4 mg IV Q4H PRN PRN Reason: Pain , Severe (7-10) Ondansetron HCl (Ondansetron 4 Mg/2 Ml Inj) 4 mg IV Q8H PRN PRN Reason: Nausea And Vomiting Sodium Chloride (Sodium Chloride 0.9% 10 Ml Flush Syringe) 10 ml IV BID ALESSIO Sodium Chloride (Sodium Chloride 0.9% 10 Ml Flush Syringe) 10 ml IV PRN PRN PRN Reason: LINE FLUSH Exam Vital Signs Temp Pulse Resp BP Pulse Ox 100.0 F H 101 H 18 137/83 99 06/13/21 20:49 06/13/21 20:49 06/13/21 20:49 06/13/21 20:49 06/13/21 20:49 Results - Labs 06/14/21 00:01 06/14/21 00:01 Abnormal lab results 06/14/21 06/14/21 06/14/21 Range/Units 00:01 00:01 04:30 WBC 18.6 H (4.5-11.0) K/mm3 MCV 97 H (84-94) fl MCH 34 H (28-32) pg MCHC 35 H (32-34) % RDW 12.1 L (13.2-15.2) % Seg Neuts % (Manual) 90.0 H (40.0-70.0) % Lymphocytes % (Manual) 5.0 L (13.4-35.0) % Seg Neutrophils # Man 16.7 H (1.8-7.7) K/mm3 Lymphocytes # (Manual) 0.9 L (1.2-5.4) K/mm3 Monocytes # (Manual) 0.9 H (0.0-0.8) K/mm3 Sodium 122 L (137-145) mmol/L Potassium 3.4 L (3.6-5.0) mmol/L Chloride 79.0 L (98-107) mmol/L Creatinine 0.4 L (0.8-1.3) mg/dL Glucose 122 H (75-100) mg/dL Calcium 7.6 L (8.4-10.2) mg/dL Magnesium 2.40 H (1.7-2.3) mg/dL Direct Bilirubin 0.3 H (0-0.2) mg/dL AST 112 H (5-40) units/L ALT 111 H (7-56) units/L Albumin 3.1 L (3.9-5) g/dL Urine WBC (Auto) (0.0-6.0) /HPF 06/14/21 Range/Units Unknown WBC (4.5-11.0) K/mm3 MCV (84-94) fl MCH (28-32) pg MCHC (32-34) % RDW (13.2-15.2) % Seg Neuts % (Manual) (40.0-70.0) % Lymphocytes % (Manual) (13.4-35.0) % Seg Neutrophils # Man (1.8-7.7) K/mm3 Lymphocytes # (Manual) (1.2-5.4) K/mm3 Monocytes # (Manual) (0.0-0.8) K/mm3 Sodium (137-145) mmol/L Potassium (3.6-5.0) mmol/L Chloride (98-107) mmol/L Creatinine (0.8-1.3) mg/dL Glucose (75-100) mg/dL Calcium (8.4-10.2) mg/dL Magnesium (1.7-2.3) mg/dL Direct Bilirubin (0-0.2) mg/dL AST (5-40) units/L ALT (7-56) units/L Albumin (3.9-5) g/dL Urine WBC (Auto) 31.0 H (0.0-6.0) /HPF Diabetes panel 06/14/21 Range/Units 00:01 Sodium 122 L (137-145) mmol/L Potassium 3.4 L (3.6-5.0) mmol/L Chloride 79.0 L (98-107) mmol/L Carbon Dioxide 29 (22-30) mmol/L BUN 9 (9-20) mg/dL Creatinine 0.4 L (0.8-1.3) mg/dL Glucose 122 H (75-100) mg/dL Calcium 7.6 L (8.4-10.2) mg/dL AST 112 H (5-40) units/L ALT 111 H (7-56) units/L Alkaline Phosphatase 129 (35-129) units/L Total Protein 6.6 (6.3-8.2) g/dL Albumin 3.1 L (3.9-5) g/dL Calcium panel 06/14/21 Range/Units 00:01 Calcium 7.6 L (8.4-10.2) mg/dL Albumin 3.1 L (3.9-5) g/dL Pituitary panel 06/14/21 Range/Units 00:01 Sodium 122 L (137-145) mmol/L Potassium 3.4 L (3.6-5.0) mmol/L Chloride 79.0 L (98-107) mmol/L Carbon Dioxide 29 (22-30) mmol/L BUN 9 (9-20) mg/dL Creatinine 0.4 L (0.8-1.3) mg/dL Glucose 122 H (75-100) mg/dL Calcium 7.6 L (8.4-10.2) mg/dL Adrenal panel 06/14/21 Range/Units 00:01 Sodium 122 L (137-145) mmol/L Potassium 3.4 L (3.6-5.0) mmol/L Chloride 79.0 L (98-107) mmol/L Carbon Dioxide 29 (22-30) mmol/L BUN 9 (9-20) mg/dL Creatinine 0.4 L (0.8-1.3) mg/dL Glucose 122 H (75-100) mg/dL Calcium 7.6 L (8.4-10.2) mg/dL Total Bilirubin 1.00 (0.1-1.2) mg/dL AST 112 H (5-40) units/L ALT 111 H (7-56) units/L Alkaline Phosphatase 129 (35-129) units/L Total Protein 6.6 (6.3-8.2) g/dL Albumin 3.1 L (3.9-5) g/dL Assessment and Plan CT scan with possible psoas muscle abscess. Findings are subtle. Continue IV antibiotics. Patient with a notably markedly distended bladder. Consider placing Banks catheter for this. We will continue to follow patient with you.
[2021-06-14] MEDS: metroNIDAZOLE/NS 500 MG/100 ML 500 MG/100 ML BAG IV SCH ×3 (10:53→21:22)
--- NOTE | 2021-06-14 12:07 | Progress Note ---
Assessment and Plan Assessment and plan: 59-year-old male presents emergency department with his family who reports she has been having 1 to 2-week history of progressively worsening weakness, fatigue, shortness of breath with occasional chest pain dizziness and sometimes altered mental status which has been waxing and waning and progressively worsening fashion since the onset. At the beginning of this month he was ambulatory on his own power and behaving normally and fully functional which significantly changed in the last 2 weeks currently over the last 2 to 3 days he has been unable to stand up or move his legs without assistance. CT of abdomen is showing a possible psoas muscle abscess on the left side. White count is elevated 18,000. Sepsis. Patient meets criteria given the tachycardia, altered mentation and diagnosis of psoas abscess. Psoas muscle abscess. Hyponatremia Hypokalemia Transaminitis Hydronephrosis 06/14/2021. CT of the abdomen and pelvis shows expansive appearance of the left psoas muscle with central hypo-attenuating region possibly reflective of abscess, hematoma not excluded. Continue IV antibiotics. General surgery following. Moderately severe distention of the urinary bladder with associated bilateral hydronephrosis compatible with a component of reflux. No obvious obstructing lesion within the prostate or bladder base to suggest source of bladder outlet obstruction. Neurogenic bladder could be considered. Banks catheter placed. Consider urology consultation History Interval history: No new issues overnight Hospitalist Physical - Constitutional Vitals: Temp Pulse Resp BP Pulse Ox 99.4 F 92 H 18 119/71 96 06/14/21 10:43 06/14/21 10:43 06/14/21 10:43 06/14/21 10:43 06/14/21 10:43 General appearance: Present: no acute distress, well-nourished - EENT Eyes: Present: PERRL, EOM intact ENT: hearing intact, clear oral mucosa, dentition normal - Neck Neck: Present: supple, normal ROM - Respiratory Respiratory effort: normal Respiratory: bilateral: CTA - Cardiovascular Rhythm: regular Heart Sounds: Present: S1 & S2. Absent: gallop, rub - Extremities Extremities: no ischemia, No edema, Full ROM - Abdominal General gastrointestinal: soft, non-tender, non-distended, normal bowel sounds - Integumentary Integumentary: Present: clear, warm, dry - Neurologic Neurologic: CNII-XII intact, moves all extremities HEART Score - HEART Score Troponin: Troponin T < 0.010 ng/mL (0.00-0.029) 06/14/21 00:01 Results - Labs CBC & Chem 7: 06/14/21 00:01 06/14/21 00:01 Labs: Laboratory Last Values WBC 18.6 K/mm3 (4.5-11.0) H 06/14/21 00:01 RBC 3.70 M/mm3 (3.65-5.03) 06/14/21 00: Hgb 12.4 gm/dl (11.8-15.2) 06/14/21 00:01 Hct 35.9 % (35.5-45.6) 06/14/21 00: MCV 97 fl (84-94) H 06/14/21 00:01 MCH 34 pg (28-32) H 06/14/21 00:01 MCHC 35 % (32-34) H 06/14/21 00:01 RDW 12.1 % (13.2-15.2) L 06/14/21 00:01 Plt Count 388 K/mm3 (140-440) 06/14/21 00:01 Add Manual Diff Complete 06/14/21 00:01 Total Counted 100 06/14/21 00:01 Seg Neuts % (Manual) 90.0 % (40.0-70.0) H 06/14/21 00:01 Band Neutrophils % 0 % 06/14/21 00:01 Lymphocytes % (Manual) 5.0 % (13.4-35.0) L 06/14/21 00:01 Reactive Lymphs % (Man) 0 % 06/14/21 00:01 Monocytes % (Manual) 5.0 % (0.0-7.3) 06/14/21 00:01 Eosinophils % (Manual) 0 % (0.0-4.3) 06/14/21 00:01 Basophils % (Manual) 0 % (0.0-1.8) 06/14/21 00:01 Metamyelocytes % 0 % 06/14/21 00:01 Myelocytes % 0 % 06/14/21 00:01 Promyelocytes % 0 % 06/14/21 00:01 Blast Cells % 0 % 06/14/21 00:01 Nucleated RBC % Not Reportable 06/14/21 00:01 Seg Neutrophils # Man 16.7 K/mm3 (1.8-7.7) H 06/14/21 00:01 Band Neutrophils # 0.0 K/mm3 06/14/21 00:01 Lymphocytes # (Manual) 0.9 K/mm3 (1.2-5.4) L 06/14/21 00:01 Abs React Lymphs (Man) 0.0 K/mm3 06/14/21 00:01 Monocytes # (Manual) 0.9 K/mm3 (0.0-0.8) H 06/14/21 00:01 Eosinophils # (Manual) 0.0 K/mm3 (0.0-0.4) 06/14/21 00:01 Basophils # (Manual) 0.0 K/mm3 (0.0-0.1) 06/14/21 00:01 Metamyelocytes # 0.0 K/mm3 06/14/21 00:01 Myelocytes # 0.0 K/mm3 06/14/21 00:01 Promyelocytes # 0.0 K/mm3 06/14/21 00:01 Blast Cells # 0.0 K/mm3 06/14/21 00:01 WBC Morphology Not Reportable 06/14/21 00:01 Hypersegmented Neuts Not Reportable 06/14/21 00:01 Hyposegmented Neuts Not Reportable 06/14/21 00:01 Hypogranular Neuts Not Reportable 06/14/21 00:01 Smudge Cells Not Reportable 06/14/21 00:01 Toxic Granulation Not Reportable 06/14/21 00:01 Toxic Vacuolation Not Reportable 06/14/21 00:01 Dohle Bodies Not Reportable 06/14/21 00:01 Pelger-Huet Anomaly Not Reportable 06/14/21 00:01 Reva Rods Not Reportable 06/14/21 00:01 Platelet Estimate Consistent w auto 06/14/21 00:01 Clumped Platelets Not Reportable 06/14/21 00:01 Plt Clumps, EDTA Not Reportable 06/14/21 00:01 Large Platelets Not Reportable 06/14/21 00:01 Giant Platelets Not Reportable 06/14/21 00:01 Platelet Satelliting Not Reportable 06/14/21 00:01 Plt Morphology Comment Not Reportable 06/14/21 00:01 RBC Morphology Not Reportable 06/14/21 00:01 Dimorphic RBCs Not Reportable 06/14/21 00:01 Polychromasia Not Reportable 06/14/21 00:01 Hypochromasia Not Reportable 06/14/21 00:01 Poikilocytosis Not Reportable 06/14/21 00:01 Anisocytosis 1+ 06/14/21 00:01 Microcytosis Not Reportable 06/14/21 00:01 Macrocytosis Not Reportable 06/14/21 00:01 Spherocytes Not Reportable 06/14/21 00:01 Pappenheimer Bodies Not Reportable 06/14/21 00:01 Sickle Cells Not Reportable 06/14/21 00:01 Target Cells Not Reportable 06/14/21 00:01 Tear Drop Cells Not Reportable 06/14/21 00:01 Ovalocytes Not Reportable 06/14/21 00:01 Helmet Cells Not Reportable 06/14/21 00:01 [place] Bodies Not Reportable 06/14/21 00:01 [place] Rings Not Reportable 06/14/21 00:01 Glo Cells Not Reportable 06/14/21 00:01 Bite Cells Not Reportable 06/14/21 00:01 Crenated Cell Not Reportable 06/14/21 00:01 Elliptocytes Not Reportable 06/14/21 00:01 Acanthocytes (Spur) Not Reportable 06/14/21 00:01 Rouleaux Not Reportable 06/14/21 00:01 Hemoglobin C Crystals Not Reportable 06/14/21 00:01 Schistocytes Not Reportable 06/14/21 00:01 Malaria parasites Not Reportable 06/14/21 00:01 [place] Bodies Not Reportable 06/14/21 00:01 Hem Pathologist Commnt No 06/14/21 00:01 Sodium 122 mmol/L (137-145) L 06/14/21 00:01 Potassium 3.4 mmol/L (3.6-5.0) L 06/14/21 00:01 Chloride 79.0 mmol/L (98-107) L 06/14/21 00:01 Carbon Dioxide 29 mmol/L (22-30) 06/14/21 00:01 Anion Gap 17 mmol/L 06/14/21 00:01 BUN 9 mg/dL (9-20) 06/14/21 00:01 Creatinine 0.4 mg/dL (0.8-1.3) L 06/14/21 00:01 Estimated GFR > 60 ml/min 06/14/21 00:01 BUN/Creatinine Ratio 23 % 06/14/21 00:01 Glucose 122 mg/dL (75-100) H 06/14/21 00:01 Lactic Acid 1.60 mmol/L (0.7-2.0) 06/14/21 00:01 Calcium 7.6 mg/dL (8.4-10.2) L 06/14/21 00: Magnesium 2.40 mg/dL (1.7-2.3) H 06/14/21 04:30 Total Bilirubin 1.00 mg/dL (0.1-1.2) 06/14/21 00:01 Direct Bilirubin 0.3 mg/dL (0-0.2) H 06/14/21 00:01 Indirect Bilirubin 0.7 mg/dL 06/14/21 00:01 AST 112 units/L (5-40) H 06/14/21 00:01 ALT 111 units/L (7-56) H 06/14/21 00:01 Alkaline Phosphatase 129 units/L (35-129) 06/14/21 00: Ammonia 28.0 umol/L (25-60) 06/14/21 00: Troponin T < 0.010 ng/mL (0.00-0.029) 06/14/21 00:01 Total Protein 6.6 g/dL (6.3-8.2) 06/14/21 00:01 Albumin 3.1 g/dL (3.9-5) L 06/14/21 00: Albumin/Globulin Ratio 0.9 % 06/14/21 00: Lipase 49 units/L (13-60) 06/14/21 00:01 Urine Color Nga (Yellow) 06/14/21 Unknown Urine Turbidity Slightly-cloudy (Clear) 06/14/21 Unknown Urine pH 6.0 (5.0-7.0) 06/14/21 Unknown Ur Specific [place] 1.016 (1.003-1.030) 06/14/21 Unknown Urine Protein 30 mg/dl mg/dL (Negative) 06/14/21 Unknown Urine Glucose (UA) Neg mg/dL (Negative) 06/14/21 Unknown Urine Ketones Neg mg/dL (Negative) 06/14/21 Unknown Urine Blood Mod (Negative) 06/14/21 Unknown Urine Nitrite Pos (Negative) 06/14/21 Unknown Urine Bilirubin Neg (Negative) 06/14/21 Unknown Urine Urobilinogen 4.0 mg/dL (<2.0) 06/14/21 Unknown Ur Leukocyte Esterase Sm (Negative) 06/14/21 Unknown Urine WBC (Auto) 31.0 /HPF (0.0-6.0) H 06/14/21 Unknown Urine RBC (Auto) 1.0 /HPF (0.0-6.0) 06/14/21 Unknown U Epithel Cells (Auto) < 1.0 /HPF (0-13.0) 06/14/21 Unknown Urine Bacteria (Auto) 1+ /HPF (Negative) 06/14/21 Unknown Microbiology: Microbiology 06/14/21 04:30 Peripheral/Venous Blood Culture - Preliminary Culture in Progress 06/14/21 04:30 Peripheral/Venous Blood Culture - Preliminary Culture in Progress Active Medications - Current Medications Current Medications: Generic Name Dose Route Start Last Admin Trade Name Freq PRN Reason Stop Dose Admin Acetaminophen 650 mg 06/14/21 04:30 Acetaminophen 325 Mg Tab PO Q4H PRN Pain MILD(1-3)/Fever >100.5/RIGGINS Sodium Chloride 1,000 mls @ 125 mls/hr 06/14/21 04:30 Nacl 0.9% 1000 Ml IV DIRECT ALESSIO Vancomycin HCl 1 gm in 250 mls @ 166.667 mls/hr 06/14/21 22:00 Vancomycin/Ns 1 Gm/250 Ml IV Q12H [facility]ESSIO Metronidazole 500 mg in 100 mls @ 100 mls/hr 06/14/21 06:00 06/14/21 10:53 Flagyl 500 Mg/100 Ml IV Not Given Q8H [facility] Protocol Cefepime HCl 2 gm in 100 mls @ 200 mls/hr 06/14/21 13:00 Cefepime/Ns 2 Gm/100 Ml IV 0100,1300 [facility] Protocol Lorazepam 2 mg 06/14/21 04:30 Lorazepam 2 Mg/Ml Vial IV Q1H PRN CIWA-Ar 8-15 Lorazepam 4 mg 06/14/21 04:30 Lorazepam 2 Mg/Ml Vial IV Q1H PRN CIWA-Ar 16-25 Lorazepam 4 mg 06/14/21 04:30 Lorazepam 2 Mg/Ml Vial IV Q15MIN PRN CIWA-Ar >25 Magnesium Hydroxide 30 ml 06/14/21 04:30 Magnesium Hydroxide (Mom) Oral Liqd Udc PO Q4H PRN Constipation Morphine Sulfate 2 mg 06/14/21 04:30 Morphine 2 Mg/1 Ml Inj IV Q4H PRN Pain, Moderate (4-6) Morphine Sulfate 4 mg 06/14/21 04:30 Morphine 4 Mg/1 Ml Inj IV Q4H PRN Pain , Severe (7-10) Ondansetron HCl 4 mg 06/14/21 04:30 Ondansetron 4 Mg/2 Ml Inj IV Q8H PRN Nausea And Vomiting Sodium Chloride 10 ml 06/14/21 10:00 Sodium Chloride 0.9% 10 Ml Flush Syringe IV BID ALESSIO Sodium Chloride 10 ml 06/14/21 04:30 Sodium Chloride 0.9% 10 Ml Flush Syringe IV PRN PRN LINE FLUSH
--- NOTE | 2021-06-14 15:05 | Gastroenterology Consultation ---
History of Present Illness - Reason for Consult Consult date: 06/14/21 abnormal liver enzymes Requesting physician: RAEGAN SHANKAR - History of Present Illness The patient is a 55 yo male who presents with generalized weakness particular lower extremity, found to have psoas muscle abscess on imaging. on abx, surgery following, noted to have abnormal liver enzymes. h/o alcohol use almost daily per chart review (denied significant use to me), denies abd pain. no known h/o chronic liver disease, jaundice, family h/o liver disease, etc. Past History Past Medical History: No medical history Past Surgical History: No surgical history Social history: alcohol abuse (Drinks alcohol almost on a daily basis) Family history: no significant family history Medications and Allergies Allergies Allergy/AdvReac Type Severity Reaction Status Date / Time No Known Allergies Allergy Verified 06/13/21 20:55 Home Medications Medication Instructions Recorded Confirmed Last Taken Type No Known Home Medications [No 06/14/21 06/14/21 Unknown History Reported Home Medications] Active Meds: Active Medications Acetaminophen (Acetaminophen 325 Mg Tab) 650 mg PO Q4H PRN PRN Reason: Pain MILD(1-3)/Fever >100.5/RIGGINS Sodium Chloride (Nacl 0.9% 1000 Ml) 1,000 mls @ 125 mls/hr IV DIRECT ALESSIO Vancomycin HCl (Vancomycin/Ns 1 Gm/250 Ml) 1 gm in 250 mls @ 166.667 mls/hr IV Q12H ALESSIO Metronidazole (Flagyl 500 Mg/100 Ml) 500 mg in 100 mls @ 100 mls/hr IV Q8H ALESSIO; Protocol Last Admin: 06/14/21 10:53 Dose: Not Given Cefepime HCl (Cefepime/Ns 2 Gm/100 Ml) 2 gm in 100 mls @ 200 mls/hr IV 0100,1300 ALESSIO; Protocol Lorazepam (Lorazepam 2 Mg/Ml Vial) 2 mg IV Q1H PRN PRN Reason: CIWA-Ar 8-15 Lorazepam (Lorazepam 2 Mg/Ml Vial) 4 mg IV Q1H PRN PRN Reason: CIWA-Ar 16-25 Lorazepam (Lorazepam 2 Mg/Ml Vial) 4 mg IV Q15MIN PRN PRN Reason: CIWA-Ar >25 Magnesium Hydroxide (Magnesium Hydroxide (Mom) Oral Liqd Udc) 30 ml PO Q4H PRN PRN Reason: Constipation Morphine Sulfate (Morphine 2 Mg/1 Ml Inj) 2 mg IV Q4H PRN PRN Reason: Pain, Moderate (4-6) Morphine Sulfate (Morphine 4 Mg/1 Ml Inj) 4 mg IV Q4H PRN PRN Reason: Pain , Severe (7-10) Ondansetron HCl (Ondansetron 4 Mg/2 Ml Inj) 4 mg IV Q8H PRN PRN Reason: Nausea And Vomiting Sodium Chloride (Sodium Chloride 0.9% 10 Ml Flush Syringe) 10 ml IV BID ALESSIO Last Admin: 06/14/21 13:05 Dose: 10 ml Sodium Chloride (Sodium Chloride 0.9% 10 Ml Flush Syringe) 10 ml IV PRN PRN PRN Reason: LINE FLUSH Reviewed/updated patient's home and current medications Review of Systems - Review of Systems All systems: negative (per HPI) Exam - Constitutional Vital Signs: Temp Pulse Resp BP Pulse Ox 99.4 F 92 H 18 119/71 96 06/14/21 10:43 06/14/21 10:43 06/14/21 10:43 06/14/21 10:43 06/14/21 10:43 General appearance: no acute distress - EENT Eyes: PERRL, EOM intact - Respiratory Respiratory effort: normal Respiratory: bilateral: CTA - Cardiovascular Rhythm: regular Heart Sounds: Present: S1 & S2 Extremities: No edema - Gastrointestinal General gastrointestinal: Present: soft, non-tender, non-distended - Neurologic Neurological: alert and oriented x3 - Psychiatric Psychiatric: appropriate mood/affect - Labs CBC & Chem 7: 06/14/21 00:01 06/14/21 00:01 Lab Results: Laboratory Results - last 24 hr 06/14/21 06/14/21 06/14/21 00:01 00:01 00:01 WBC 18.6 H RBC 3.70 Hgb 12.4 Hct 35.9 MCV 97 H MCH 34 H MCHC 35 H RDW 12.1 L Plt Count 388 Add Manual Diff Complete Total Counted 100 Seg Neuts % (Manual) 90.0 H Band Neutrophils % 0 Lymphocytes % (Manual) 5.0 L Reactive Lymphs % (Man) 0 Monocytes % (Manual) 5.0 Eosinophils % (Manual) 0 Basophils % (Manual) 0 Metamyelocytes % 0 Myelocytes % 0 Promyelocytes % 0 Blast Cells % 0 Nucleated RBC % Not Reportable Seg Neutrophils # Man 16.7 H Band Neutrophils # 0.0 Lymphocytes # (Manual) 0.9 L Abs React Lymphs (Man) 0.0 Monocytes # (Manual) 0.9 H Eosinophils # (Manual) 0.0 Basophils # (Manual) 0.0 Metamyelocytes # 0.0 Myelocytes # 0.0 Promyelocytes # 0.0 Blast Cells # 0.0 WBC Morphology Not Reportable Hypersegmented Neuts Not Reportable Hyposegmented Neuts Not Reportable Hypogranular Neuts Not Reportable Smudge Cells Not Reportable Toxic Granulation Not Reportable Toxic Vacuolation Not Reportable Dohle Bodies Not Reportable Pelger-Huet Anomaly Not Reportable Reva Rods Not Reportable Platelet Estimate Consistent w auto Clumped Platelets Not Reportable Plt Clumps, EDTA Not Reportable Large Platelets Not Reportable Giant Platelets Not Reportable Platelet Satelliting Not Reportable Plt Morphology Comment Not Reportable RBC Morphology Not Reportable Dimorphic RBCs Not Reportable Polychromasia Not Reportable Hypochromasia Not Reportable Poikilocytosis Not Reportable Anisocytosis 1+ Microcytosis Not Reportable Macrocytosis Not Reportable Spherocytes Not Reportable Pappenheimer Bodies Not Reportable Sickle Cells Not Reportable Target Cells Not Reportable Tear Drop Cells Not Reportable Ovalocytes Not Reportable Helmet Cells Not Reportable [place] Bodies Not Reportable [place] Rings Not Reportable [place] Cells Not Reportable Bite Cells Not Reportable Crenated Cell Not Reportable Elliptocytes Not Reportable Acanthocytes (Spur) Not Reportable Rouleaux Not Reportable Hemoglobin C Crystals Not Reportable Schistocytes Not Reportable Malaria parasites Not Reportable Warenr Bodies Not Reportable Hem Pathologist Commnt No Sodium 122 L Potassium 3.4 L Chloride 79.0 L Carbon Dioxide 29 Anion Gap 17 BUN 9 Creatinine 0.4 L Estimated GFR > 60 BUN/Creatinine Ratio 23 Glucose 122 H Lactic Acid Calcium 7.6 L Magnesium Total Bilirubin 1.00 Direct Bilirubin 0.3 H Indirect Bilirubin 0.7 AST 112 H ALT 111 H Alkaline Phosphatase 129 Ammonia Troponin T < 0.010 Total Protein 6.6 Albumin 3.1 L Albumin/Globulin Ratio 0.9 Lipase 49 Urine Color Urine Turbidity Urine pH Ur Specific [place] Urine Protein Urine Glucose (UA) Urine Ketones Urine Blood Urine Nitrite Urine Bilirubin Urine Urobilinogen Ur Leukocyte Esterase Urine WBC (Auto) Urine RBC (Auto) U Epithel Cells (Auto) Urine Bacteria (Auto) 06/14/21 06/14/21 06/14/21 00:01 00:01 04:30 WBC RBC Hgb Hct MCV MCH MCHC RDW Plt Count Add Manual Diff Total Counted Seg Neuts % (Manual) Band Neutrophils % Lymphocytes % (Manual) Reactive Lymphs % (Man) Monocytes % (Manual) Eosinophils % (Manual) Basophils % (Manual) Metamyelocytes % Myelocytes % Promyelocytes % Blast Cells % Nucleated RBC % Seg Neutrophils # Man Band Neutrophils # Lymphocytes # (Manual) Abs React Lymphs (Man) Monocytes # (Manual) Eosinophils # (Manual) Basophils # (Manual) Metamyelocytes # Myelocytes # Promyelocytes # Blast Cells # WBC Morphology Hypersegmented Neuts Hyposegmented Neuts Hypogranular Neuts Smudge Cells Toxic Granulation Toxic Vacuolation Dohle Bodies Pelger-Huet Anomaly Reva Rods Platelet Estimate Clumped Platelets Plt Clumps, EDTA Large Platelets Giant Platelets Platelet Satelliting Plt Morphology Comment RBC Morphology Dimorphic RBCs Polychromasia Hypochromasia Poikilocytosis Anisocytosis Microcytosis Macrocytosis Spherocytes Pappenheimer Bodies Sickle Cells Target Cells Tear Drop Cells Ovalocytes Helmet Cells [place] Bodies [place] Rings Glo Cells Bite Cells Crenated Cell Elliptocytes Acanthocytes (Spur) Rouleaux Hemoglobin C Crystals Schistocytes Malaria parasites [place] Bodies Hem Pathologist Commnt Sodium Potassium Chloride Carbon Dioxide Anion Gap BUN Creatinine Estimated GFR BUN/Creatinine Ratio Glucose Lactic Acid 1.60 Calcium Magnesium 2.40 H Total Bilirubin Direct Bilirubin Indirect Bilirubin AST ALT Alkaline Phosphatase Ammonia 28.0 Troponin T Total Protein Albumin Albumin/Globulin Ratio Lipase Urine Color Urine Turbidity Urine pH Ur Specific [place] Urine Protein Urine Glucose (UA) Urine Ketones Urine Blood Urine Nitrite Urine Bilirubin Urine Urobilinogen Ur Leukocyte Esterase Urine WBC (Auto) Urine RBC (Auto) U Epithel Cells (Auto) Urine Bacteria (Auto) 06/14/21 Unknown WBC RBC Hgb Hct MCV MCH MCHC RDW Plt Count Add Manual Diff Total Counted Seg Neuts % (Manual) Band Neutrophils % Lymphocytes % (Manual) Reactive Lymphs % (Man) Monocytes % (Manual) Eosinophils % (Manual) Basophils % (Manual) Metamyelocytes % Myelocytes % Promyelocytes % Blast Cells % Nucleated RBC % Seg Neutrophils # Man Band Neutrophils # Lymphocytes # (Manual) Abs React Lymphs (Man) Monocytes # (Manual) Eosinophils # (Manual) Basophils # (Manual) Metamyelocytes # Myelocytes # Promyelocytes # Blast Cells # WBC Morphology Hypersegmented Neuts Hyposegmented Neuts Hypogranular Neuts Smudge Cells Toxic Granulation Toxic Vacuolation Dohle Bodies Pelger-Huet Anomaly Reva Rods Platelet Estimate Clumped Platelets Plt Clumps, EDTA Large Platelets Giant Platelets Platelet Satelliting Plt Morphology Comment RBC Morphology Dimorphic RBCs Polychromasia Hypochromasia Poikilocytosis Anisocytosis Microcytosis Macrocytosis Spherocytes Pappenheimer Bodies Sickle Cells Target Cells Tear Drop Cells Ovalocytes Helmet Cells [place] Bodies [place] Cells Bite Cells Crenated Cell Elliptocytes Acanthocytes (Spur) Rouleaux Hemoglobin C Crystals Schistocytes Malaria parasites [place] Bodies Hem Pathologist Commnt Sodium Potassium Chloride Carbon Dioxide Anion Gap BUN Creatinine Estimated GFR BUN/Creatinine Ratio Glucose Lactic Acid Calcium Magnesium Total Bilirubin Direct Bilirubin Indirect Bilirubin AST ALT Alkaline Phosphatase Ammonia Troponin T Total Protein Albumin Albumin/Globulin Ratio Lipase Urine Color Nga Urine Turbidity Slightly-cloudy Urine pH 6.0 Ur Specific [place] 1.016 Urine Protein 30 mg/dl Urine Glucose (UA) Neg Urine Ketones Neg Urine Blood Mod Urine Nitrite Pos Urine Bilirubin Neg Urine Urobilinogen 4.0 Ur Leukocyte Esterase Sm Urine WBC (Auto) 31.0 H Urine RBC (Auto) 1.0 U Epithel Cells (Auto) < 1.0 Urine Bacteria (Auto) 1+ Assessment and Plan 1. Abnormal liver enzymes - hepatocellular patter, suspect due to alcohol vs sepsis. r/o viral hepatitis to r/o underlying chronic liver disease. monitor levels, and if stable/improving, does not need additional work-up from gi stand point otherwise. no biliary dilatation on imaging. will sign off, please call as needed or changes in clinical course
[2021-06-14] MEDS: CEFEPIME/NS 2 GM/100 ML 2 GM/100 ML BAG IV SCH (16:00)
[2021-06-14] MEDS: VANCOMYCIN/NS 1 GM/250 ML 1 GM/250 ML BAG IV SCH (22:50)
[2021-06-14] MEDS: MAGNESIUM HYDROXIDE (MOM) ORAL LIQD UDC PO PRN (23:00)
[2021-06-15] MEDS: CEFEPIME/NS 2 GM/100 ML 2 GM/100 ML BAG IV SCH (02:56)
[2021-06-15] MEDS: metroNIDAZOLE/NS 500 MG/100 ML 500 MG/100 ML BAG IV SCH ×2 (06:08→14:14)
[2021-06-15 06:36] LABS: Basophils % (Auto) 0.2 % (0.0-1.8); Eosinophils # (Auto) 0.1 K/mm3 (0.0-0.4); Eosinophils % (Auto) 0.4 % (0.0-4.3); Hematocrit 33.4 % (35.5-45.6); Hemoglobin 11.1 gm/dl (11.8-15.2); Lymphocytes # (Auto) 0.7 K/mm3 (1.2-5.4); Lymphocytes % (Auto) 4.1 % (13.4-35.0); Mean Corpuscular HGB Conc 33 % (32-34); Mean Corpuscular Volume 99 fl (84-94); Monocytes # (Auto) 1.6 K/mm3 (0.0-0.8); Monocytes % (Auto) 8.8 % (0.0-7.3); Platelet Count 468 K/mm3 (140-440); Red Blood Count 3.38 M/mm3 (3.65-5.03); Red Cell Distribution Width 12.1 % (13.2-15.2)
[2021-06-15 06:52] LABS: Blood Urea Nitrogen 8 mg/dL (9-20); Calcium 7.3 mg/dL (8.4-10.2); Hemolysis Index 6
[2021-06-15 06:59] LABS: BUN/Creatinine Ratio 27
[2021-06-15] MEDS: MORPHINE 2 MG/1 ML INJ IV PRN ×2 (09:30→15:43)
[2021-06-15] MEDS: VANCOMYCIN/NS 1 GM/250 ML 1 GM/250 ML BAG IV SCH ×2 (09:30→22:17)
[2021-06-15] MEDS: MAGNESIUM HYDROXIDE (MOM) ORAL LIQD UDC PO PRN ×2 (09:31→15:44)
--- NOTE | 2021-06-15 09:50 | Progress Note ---
Assessment and Plan Assessment and plan: 59-year-old male presents emergency department with his family who reports she has been having 1 to 2-week history of progressively worsening weakness, fatigue, shortness of breath with occasional chest pain dizziness and sometimes altered mental status which has been waxing and waning and progressively worsening fashion since the onset. At the beginning of this month he was ambulatory on his own power and behaving normally and fully functional which significantly changed in the last 2 weeks currently over the last 2 to 3 days he has been unable to stand up or move his legs without assistance. CT of abdomen is showing a possible psoas muscle abscess on the left side. White count is elevated 18,000. Sepsis. Patient meets criteria given the tachycardia, altered mentation and diagnosis of psoas abscess/UTI. Psoas muscle abscess. UTI EtOH abuse Generalized weakness. Hydronephrosis Hyponatremia Hypokalemia Transaminitis 06/14/2021. CT of the abdomen and pelvis shows expansive appearance of the left psoas muscle with central hypo-attenuating region possibly reflective of absces s, hematoma not excluded. Continue IV antibiotics. General surgery following. Moderately severe distention of the urinary bladder with associated bilateral hydronephrosis compatible with a component of reflux. No obvious obstructing lesion within the prostate or bladder base to suggest source of bladder outlet obstruction. Neurogenic bladder could be considered. Banks catheter placed. Consider urology consultation 06/15/2021. I discussed the case with surgery who recommends IR consultation for possible drain of left psoas muscle abscess. Continue IV antibiotics. ID consulted. Moderately severe distention of the urinary bladder with associated bilateral hydronephrosis compatible with a component of reflux. No obvious obstructing lesion within the prostate or bladder base to suggest source of bladder outlet obstruction. Neurogenic bladder could be considered. Banks catheter placed. Consider urology consultation. Appreciate GI input regarding transaminitis. Follow-up hepatitis panel. Further history elicited from the daughter noted patient with EtOH abuse. Continue CIWA protocol. Neurology consultation for progressive weakness. Follow-up blood and urine cultures. History Interval history: No new issues overnight Hospitalist Physical - Constitutional Vitals: Temp Pulse Resp BP Pulse Ox 98.6 F 96 H 18 121/79 94 06/15/21 04:34 06/15/21 04:34 06/15/21 04:34 06/15/21 04:34 06/15/21 04:34 General appearance: Present: no acute distress, well-nourished - EENT Eyes: Present: PERRL, EOM intact ENT: hearing intact, clear oral mucosa, dentition normal - Neck Neck: Present: supple, normal ROM - Respiratory Respiratory effort: normal Respiratory: bilateral: CTA - Cardiovascular Rhythm: regular Heart Sounds: Present: S1 & S2. Absent: gallop, rub - Extremities Extremities: no ischemia, No edema, Full ROM - Abdominal General gastrointestinal: soft, non-tender, non-distended, normal bowel sounds - Integumentary Integumentary: Present: clear, warm, dry - Neurologic Neurologic: CNII-XII intact, moves all extremities HEART Score - HEART Score Troponin: Troponin T < 0.010 ng/mL (0.00-0.029) 06/14/21 00:01 Results - Labs CBC & Chem 7: 06/15/21 05:32 06/15/21 05:32 Labs: Laboratory Last Values WBC 17.7 K/mm3 (4.5-11.0) H 06/15/21 05:32 RBC 3.38 M/mm3 (3.65-5.03) L 06/15/21 05:32 Hgb 11.1 gm/dl (11.8-15.2) L 06/15/21 05:32 Hct 33.4 % (35.5-45.6) L 06/15/21 05:32 MCV 99 fl (84-94) H 06/15/21 05:32 MCH 33 pg (28-32) H 06/15/21 05:32 MCHC 33 % (32-34) 06/15/21 05:32 RDW 12.1 % (13.2-15.2) L 06/15/21 05:32 Plt Count 468 K/mm3 (140-440) H 06/15/21 05:32 Lymph % (Auto) 4.1 % (13.4-35.0) L 06/15/21 05:32 [place] % (Auto) 8.8 % (0.0-7.3) H 06/15/21 05:32 Eos % (Auto) 0.4 % (0.0-4.3) 06/15/21 05:32 Baso % (Auto) 0.2 % (0.0-1.8) 06/15/21 05:32 Lymph # (Auto) 0.7 K/mm3 (1.2-5.4) L 06/15/21 05:32 [place] # (Auto) 1.6 K/mm3 (0.0-0.8) H 06/15/21 05:32 Eos # (Auto) 0.1 K/mm3 (0.0-0.4) 06/15/21 05:32 Baso # (Auto) 0.0 K/mm3 (0.0-0.1) 06/15/21 05:32 Add Manual Diff Complete 06/14/21 00:01 Total Counted 100 06/14/21 00:01 Seg Neutrophils % 86.5 % (40.0-70.0) H 06/15/21 05:32 Seg Neuts % (Manual) 90.0 % (40.0-70.0) H 06/14/21 00:01 Band Neutrophils % 0 % 06/14/21 00:01 Lymphocytes % (Manual) 5.0 % (13.4-35.0) L 06/14/21 00:01 Reactive Lymphs % (Man) 0 % 06/14/21 00:01 Monocytes % (Manual) 5.0 % (0.0-7.3) 06/14/21 00:01 Eosinophils % (Manual) 0 % (0.0-4.3) 06/14/21 00:01 Basophils % (Manual) 0 % (0.0-1.8) 06/14/21 00:01 Metamyelocytes % 0 % 06/14/21 00:01 Myelocytes % 0 % 06/14/21 00:01 Promyelocytes % 0 % 06/14/21 00:01 Blast Cells % 0 % 06/14/21 00:01 Nucleated RBC % Not Reportable 06/14/21 00:01 Seg Neutrophils # 15.3 K/mm3 (1.8-7.7) H 06/15/21 05:32 Seg Neutrophils # Man 16.7 K/mm3 (1.8-7.7) H 06/14/21 00:01 Band Neutrophils # 0.0 K/mm3 06/14/21 00:01 Lymphocytes # (Manual) 0.9 K/mm3 (1.2-5.4) L 06/14/21 00:01 Abs React Lymphs (Man) 0.0 K/mm3 06/14/21 00:01 Monocytes # (Manual) 0.9 K/mm3 (0.0-0.8) H 06/14/21 00:01 Eosinophils # (Manual) 0.0 K/mm3 (0.0-0.4) 06/14/21 00:01 Basophils # (Manual) 0.0 K/mm3 (0.0-0.1) 06/14/21 00:01 Metamyelocytes # 0.0 K/mm3 06/14/21 00:01 Myelocytes # 0.0 K/mm3 06/14/21 00:01 Promyelocytes # 0.0 K/mm3 06/14/21 00:01 Blast Cells # 0.0 K/mm3 06/14/21 00:01 WBC Morphology Not Reportable 06/14/21 00:01 Hypersegmented Neuts Not Reportable 06/14/21 00:01 Hyposegmented Neuts Not Reportable 06/14/21 00:01 Hypogranular Neuts Not Reportable 06/14/21 00:01 Smudge Cells Not Reportable 06/14/21 00:01 Toxic Granulation Not Reportable 06/14/21 00:01 Toxic Vacuolation Not Reportable 06/14/21 00:01 Dohle Bodies Not Reportable 06/14/21 00:01 Pelger-Huet Anomaly Not Reportable 06/14/21 00:01 Reva Rods Not Reportable 06/14/21 00:01 Platelet Estimate Consistent w auto 06/14/21 00:01 Clumped Platelets Not Reportable 06/14/21 00:01 Plt Clumps, EDTA Not Reportable 06/14/21 00:01 Large Platelets Not Reportable 06/14/21 00:01 Giant Platelets Not Reportable 06/14/21 00:01 Platelet Satelliting Not Reportable 06/14/21 00:01 Plt Morphology Comment Not Reportable 06/14/21 00:01 RBC Morphology Not Reportable 06/14/21 00:01 Dimorphic RBCs Not Reportable 06/14/21 00:01 Polychromasia Not Reportable 06/14/21 00:01 Hypochromasia Not Reportable 06/14/21 00:01 Poikilocytosis Not Reportable 06/14/21 00:01 Anisocytosis 1+ 06/14/21 00:01 Microcytosis Not Reportable 06/14/21 00:01 Macrocytosis Not Reportable 06/14/21 00:01 Spherocytes Not Reportable 06/14/21 00:01 Pappenheimer Bodies Not Reportable 06/14/21 00:01 Sickle Cells Not Reportable 06/14/21 00:01 Target Cells Not Reportable 06/14/21 00:01 Tear Drop Cells Not Reportable 06/14/21 00:01 Ovalocytes Not Reportable 06/14/21 00:01 Helmet Cells Not Reportable 06/14/21 00:01 [place] Bodies Not Reportable 06/14/21 00:01 [place] Rings Not Reportable 06/14/21 00:01 Glo Cells Not Reportable 06/14/21 00:01 Bite Cells Not Reportable 06/14/21 00:01 Crenated Cell Not Reportable 06/14/21 00:01 Elliptocytes Not Reportable 06/14/21 00:01 Acanthocytes (Spur) Not Reportable 06/14/21 00:01 Rouleaux Not Reportable 06/14/21 00:01 Hemoglobin C Crystals Not Reportable 06/14/21 00:01 Schistocytes Not Reportable 06/14/21 00:01 Malaria parasites Not Reportable 06/14/21 00:01 [place] Bodies Not Reportable 06/14/21 00:01 Hem Pathologist Commnt No 06/14/21 00:01 Sodium 129 mmol/L (137-145) L D 06/15/21 05:32 Potassium 3.5 mmol/L (3.6-5.0) L 06/15/21 05:32 Chloride 88.0 mmol/L (98-107) L 06/15/21 05:32 Carbon Dioxide 29 mmol/L (22-30) 06/15/21 05:32 Anion Gap 16 mmol/L 06/15/21 05:32 BUN 8 mg/dL (9-20) L 06/15/21 05:32 Creatinine 0.3 mg/dL (0.8-1.3) L 06/15/21 05:32 Estimated GFR > 60 ml/min 06/15/21 05:32 BUN/Creatinine Ratio 27 % 06/15/21 05:32 Glucose 104 mg/dL (75-100) H 06/15/21 05:32 Lactic Acid 1.60 mmol/L (0.7-2.0) 06/14/21 00:01 Calcium 7.3 mg/dL (8.4-10.2) L 06/15/21 05:32 Magnesium 2.40 mg/dL (1.7-2.3) H 06/14/21 04:30 Total Bilirubin 1.00 mg/dL (0.1-1.2) 06/14/21 00:01 Direct Bilirubin 0.3 mg/dL (0-0.2) H 06/14/21 00:01 Indirect Bilirubin 0.7 mg/dL 06/14/21 00:01 AST 112 units/L (5-40) H 06/14/21 00:01 ALT 111 units/L (7-56) H 06/14/21 00:01 Alkaline Phosphatase 129 units/L (35-129) 06/14/21 00:01 Ammonia 28.0 umol/L (25-60) 06/14/21 00:01 Troponin T < 0.010 ng/mL (0.00-0.029) 06/14/21 00:01 Total Protein 6.6 g/dL (6.3-8.2) 06/14/21 00:01 Albumin 3.1 g/dL (3.9-5) L 06/14/21 00:01 Albumin/Globulin Ratio 0.9 % 06/14/21 00:01 Lipase 49 units/L (13-60) 06/14/21 00:01 Urine Color Nga (Yellow) 06/14/21 Unknown Urine Turbidity Slightly-cloudy (Clear) 06/14/21 Unknown Urine pH 6.0 (5.0-7.0) 06/14/21 Unknown Ur Specific [place] 1.016 (1.003-1.030) 06/14/21 Unknown Urine Protein 30 mg/dl mg/dL (Negative) 06/14/21 Unknown Urine Glucose (UA) Neg mg/dL (Negative) 06/14/21 Unknown Urine Ketones Neg mg/dL (Negative) 06/14/21 Unknown Urine Blood Mod (Negative) 06/14/21 Unknown Urine Nitrite Pos (Negative) 06/14/21 Unknown Urine Bilirubin Neg (Negative) 06/14/21 Unknown Urine Urobilinogen 4.0 mg/dL (<2.0) 06/14/21 Unknown Ur Leukocyte Esterase Sm (Negative) 06/14/21 Unknown Urine WBC (Auto) 31.0 /HPF (0.0-6.0) H 06/14/21 Unknown Urine RBC (Auto) 1.0 /HPF (0.0-6.0) 06/14/21 Unknown U Epithel Cells (Auto) < 1.0 /HPF (0-13.0) 06/14/21 Unknown Urine Bacteria (Auto) 1+ /HPF (Negative) 06/14/21 Unknown Microbiology: Microbiology 06/14/21 04:30 Peripheral/Venous Blood Culture - Preliminary 06/14/21 04:30 Peripheral/Venous Blood Culture - Preliminary Banks/IV: Voiding Method Indwelling Catheter Active Medications - Current Medications Current Medications: Generic Name Dose Route Start Last Admin Trade Name Freq PRN Reason Stop Dose Admin Acetaminophen 650 mg 06/14/21 04:30 Acetaminophen 325 Mg Tab PO Q4H PRN Pain MILD(1-3)/Fever >100.5/RIGGINS Sodium Chloride 1,000 mls @ 125 mls/hr 06/14/21 04:30 Nacl 0.9% 1000 Ml IV DIRECT ALESSIO Vancomycin HCl 1 gm in 250 mls @ 166.667 mls/hr 06/14/21 22:00 06/15/21 09:30 Vancomycin/Ns 1 Gm/250 Ml IV 166.667 mls/hr Q12H ALESSIO Administration Metronidazole 500 mg in 100 mls @ 100 mls/hr 06/14/21 06:00 06/15/21 06:08 Flagyl 500 Mg/100 Ml IV 100 mls/hr Q8H ALESSIO Administration Protocol Cefepime HCl 2 gm in 100 mls @ 200 mls/hr 06/15/21 12:00 Cefepime/Ns 2 Gm/100 Ml IV Q12H ALESSIO Protocol Lorazepam 2 mg 06/14/21 04:30 Lorazepam 2 Mg/Ml Vial IV Q1H PRN CIWA-Ar 8-15 Lorazepam 4 mg 06/14/21 04:30 Lorazepam 2 Mg/Ml Vial IV Q1H PRN CIWA-Ar 16-25 Lorazepam 4 mg 06/14/21 04:30 Lorazepam 2 Mg/Ml Vial IV Q15MIN PRN CIWA-Ar >25 Magnesium Hydroxide 30 ml 06/14/21 04:30 06/15/21 09:31 Magnesium Hydroxide (Mom) Oral Liqd Udc PO 30 ml Q4H PRN Administration Constipation Morphine Sulfate 2 mg 06/14/21 04:30 06/15/21 09:30 Morphine 2 Mg/1 Ml Inj IV 2 mg Q4H PRN Administration Pain, Moderate (4-6) Morphine Sulfate 4 mg 06/14/21 04:30 Morphine 4 Mg/1 Ml Inj IV Q4H PRN Pain , Severe (7-10) Ondansetron HCl 4 mg 06/14/21 04:30 Ondansetron 4 Mg/2 Ml Inj IV Q8H PRN Nausea And Vomiting Sodium Chloride 10 ml 06/14/21 10:00 06/15/21 09:30 Sodium Chloride 0.9% 10 Ml Flush Syringe IV 10 ml BID ALESSIO Administration Sodium Chloride 10 ml 06/14/21 04:30 Sodium Chloride 0.9% 10 Ml Flush Syringe IV PRN PRN LINE FLUSH
--- NOTE | 2021-06-15 09:52 | Progress Note ---
Assessment and Plan CT scan with possible psoas muscle abscess. Findings are subtle. Continue IV antibiotics. Patient with a notably markedly distended bladder. Consider placing Banks catheter for this. We will continue to follow patient with you. IR to review the case and be consulted for potential percutaneous drainage of psoas abscess. Patient appears clinically improved with IV antibiotics at this time. I have requested Dr. Austin to also consult neurology as patient has upper arm weakness and hand weakness which is not well understood at this time. Patient's daughter also is wanting cirrhosis worked up. Patient is apparently a heavy drinker and a smoker. GI has been consulted for this. Subjective Date of service: 06/15/21 Patient Reports: Positive: no new complaints, feels better, still having pain Narrative: Patient's daughter is at bedside and states that her father is able to move his legs a little bit more today but there is continued difficulty moving arms and decreased hand strength. Objective Vital Signs - 12hr 06/14/21 06/14/21 06/15/21 22:06 22:48 04:34 Temperature 98.9 F 98.6 F Pulse Rate 96 H 96 H Respiratory 18 18 Rate Blood Pressure 120/71 121/79 O2 Sat by Pulse 97 97 94 Oximetry - Labs 06/15/21 05:32 06/15/21 05:32 Diabetes panel 06/15/21 Range/Units 05:32 Sodium 129 L D (137-145) mmol/L Potassium 3.5 L (3.6-5.0) mmol/L Chloride 88.0 L (98-107) mmol/L Carbon Dioxide 29 (22-30) mmol/L BUN 8 L (9-20) mg/dL Creatinine 0.3 L (0.8-1.3) mg/dL Glucose 104 H (75-100) mg/dL Calcium 7.3 L (8.4-10.2) mg/dL Calcium panel 06/15/21 Range/Units 05:32 Calcium 7.3 L (8.4-10.2) mg/dL Pituitary panel 06/15/21 Range/Units 05:32 Sodium 129 L D (137-145) mmol/L Potassium 3.5 L (3.6-5.0) mmol/L Chloride 88.0 L (98-107) mmol/L Carbon Dioxide 29 (22-30) mmol/L BUN 8 L (9-20) mg/dL Creatinine 0.3 L (0.8-1.3) mg/dL Glucose 104 H (75-100) mg/dL Calcium 7.3 L (8.4-10.2) mg/dL Adrenal panel 06/15/21 Range/Units 05:32 Sodium 129 L D (137-145) mmol/L Potassium 3.5 L (3.6-5.0) mmol/L Chloride 88.0 L (98-107) mmol/L Carbon Dioxide 29 (22-30) mmol/L BUN 8 L (9-20) mg/dL Creatinine 0.3 L (0.8-1.3) mg/dL Glucose 104 H (75-100) mg/dL Calcium 7.3 L (8.4-10.2) mg/dL
[2021-06-15 10:56] LABS: INR 1.01 (0.87-1.13)
[2021-06-15] MEDS ORDERED: CEFEPIME/NS 2 GM/100 ML 2 GM/100 ML BAG IV SCH (12:00)
--- NOTE | 2021-06-15 12:48 | Consultation ---
History of Present Illness - Reason for Consult Consult date: 06/15/21 - History of Present Illness 55-year-old man no known past medical history complaining of generalized weakness for the past 2 weeks. He complains of occasional dizziness as well, and shortness of breath. According to family and the chart he has had some intermittent changes in mental status. He was noted to have a fall prior to admission. CT on admission was found to have left psoas muscle abscess. Febrile to 100.6 with a white count 17.7. Blood cultures with gram-positive cocci. Currently on cefepime and vancomycin. Review of Systems: Bold if positive, otherwise negative General: fevers, chills, rigors HEENT: visual disturbance, diplopia, eye pain Respiratory: cough, sputum, hemoptysis, shortness of breath Cardiovascular: chest pain, syncope Gastrointestinal: nausea, vomiting, diarrhea, abdominal pain Genitourinary: dysuria, hematuria, flank pain Musculoskeletal: neck pain, back pain, joint pain, edema Neurologic: headaches, seizures Hematologic: easy bruising or bleeding Endocrine: night sweats, acute weight loss Skin: rash, jaundice, redness Psychiatric: suicidal, homicidal ideation Past History Past Medical History: No medical history Past Surgical History: No surgical history Social history: alcohol abuse (Drinks alcohol almost on a daily basis) Family history: no significant family history Medications and Allergies Allergies Allergy/AdvReac Type Severity Reaction Status Date / Time No Known Allergies Allergy Verified 06/13/21 20:55 Home Medications Medication Instructions Recorded Confirmed Last Taken Type No Known Home Medications [No 06/14/21 06/14/21 Unknown History Reported Home Medications] Active Meds: Active Medications Acetaminophen (Acetaminophen 325 Mg Tab) 650 mg PO Q4H PRN PRN Reason: Pain MILD(1-3)/Fever >100.5/RIGGINS Sodium Chloride (Nacl 0.9% 1000 Ml) 1,000 mls @ 125 mls/hr IV DIRECT ALESSIO Vancomycin HCl (Vancomycin/Ns 1 Gm/250 Ml) 1 gm in 250 mls @ 166.667 mls/hr IV Q12H ALESSIO Last Admin: 06/15/21 09:30 Dose: 166.667 mls/hr Metronidazole (Flagyl 500 Mg/100 Ml) 500 mg in 100 mls @ 100 mls/hr IV Q8H ALSESIO; Protocol Last Admin: 06/15/21 06:08 Dose: 100 mls/hr Cefepime HCl (Cefepime/Ns 2 Gm/100 Ml) 2 gm in 100 mls @ 200 mls/hr IV Q12H ALESSIO; Protocol Lorazepam (Lorazepam 2 Mg/Ml Vial) 2 mg IV Q1H PRN PRN Reason: CIWA-Ar 8-15 Lorazepam (Lorazepam 2 Mg/Ml Vial) 4 mg IV Q1H PRN PRN Reason: CIWA-Ar 16-25 Lorazepam (Lorazepam 2 Mg/Ml Vial) 4 mg IV Q15MIN PRN PRN Reason: CIWA-Ar >25 Magnesium Hydroxide (Magnesium Hydroxide (Mom) Oral Liqd Udc) 30 ml PO Q4H PRN PRN Reason: Constipation Last Admin: 06/15/21 09:31 Dose: 30 ml Morphine Sulfate (Morphine 2 Mg/1 Ml Inj) 2 mg IV Q4H PRN PRN Reason: Pain, Moderate (4-6) Last Admin: 06/15/21 09:30 Dose: 2 mg Morphine Sulfate (Morphine 4 Mg/1 Ml Inj) 4 mg IV Q4H PRN PRN Reason: Pain , Severe (7-10) Ondansetron HCl (Ondansetron 4 Mg/2 Ml Inj) 4 mg IV Q8H PRN PRN Reason: Nausea And Vomiting Sodium Chloride (Sodium Chloride 0.9% 10 Ml Flush Syringe) 10 ml IV BID ALESSIO Last Admin: 06/15/21 09:30 Dose: 10 ml Sodium Chloride (Sodium Chloride 0.9% 10 Ml Flush Syringe) 10 ml IV PRN PRN PRN Reason: LINE FLUSH Physical Examination - Physical Exam Narrative exam: Physical Exam: Constitutional: Alert, cooperative. No acute distress Head, Ears, Nose: Normocephalic, atraumatic. External ears, nose normal Eyes: Conjunctivae/corneas clear. No icterus. No ptosis. Neck: Supple, no meningeal signs Oral: dentition fair, no thrush Cardiovascular: S1, S2 normal. Respiratory: Good air entry, clear to auscultation bilaterally GI: Soft, non-tender; bowel sounds normal. No peritoneal signs. Musculoskeletal: No pedal edema, no cyanosis. Skin: No rash or abscess Hem/Lymphatic: No palpable cervical or supraclavicular nodes. No lymphangitis Psych: Mood ok. Affect normal Neurological: Awake, alert, oriented. No gross abnormality - Constitutional Vitals: Vital Signs Temp Pulse Resp BP Pulse Ox 98.0 F 94 H 18 124/78 96 06/15/21 10:56 06/15/21 10:56 06/15/21 10:56 06/15/21 10:56 06/15/21 10:56 Temperature -Last 24 Hours Temperature 98.0 F Temperature 98.6 F Temperature 98.9 F Temperature 99.4 F Results - Labs CBC & Chem 7: 06/15/21 05:32 06/15/21 05:32 Labs: Abnormal lab results 06/15/21 06/15/21 Range/Units 05:32 05:32 WBC 17.7 H (4.5-11.0) K/mm3 RBC 3.38 L (3.65-5.03) M/mm3 Hgb 11.1 L (11.8-15.2) gm/dl Hct 33.4 L (35.5-45.6) % MCV 99 H (84-94) fl MCH 33 H (28-32) pg RDW 12.1 L (13.2-15.2) % Plt Count 468 H (140-440) K/mm3 Lymph % (Auto) 4.1 L (13.4-35.0) % [place] % (Auto) 8.8 H (0.0-7.3) % Lymph # (Auto) 0.7 L (1.2-5.4) K/mm3 [place] # (Auto) 1.6 H (0.0-0.8) K/mm3 Seg Neutrophils % 86.5 H (40.0-70.0) % Seg Neutrophils # 15.3 H (1.8-7.7) K/mm3 Sodium 129 L D (137-145) mmol/L Potassium 3.5 L (3.6-5.0) mmol/L Chloride 88.0 L (98-107) mmol/L BUN 8 L (9-20) mg/dL Creatinine 0.3 L (0.8-1.3) mg/dL Glucose 104 H (75-100) mg/dL Calcium 7.3 L (8.4-10.2) mg/dL Assessment and Plan Cultures: Blood culture Gram automated both sets A/P: 55-year-old man no known past medical history admitted with: #Acute sepsis: Present with fever leukocytosis. Secondary to gram-positive bacteremia and psoas abscess #Gram-positive cocci bacteremia: Secondary to psoas abscess. Pending speciation, presumed staph infection #Left psoas abscess: Evaluated by IR, not amenable to percutaneous drainage, only aspiration. His sepsis resolved with antibiotics only, and if blood cultures clear agree no need for aspiration. If blood cultures remain persistently positive, would recommend aspiration for source control. Recs: -Continue vancomycin goal trough 10-20 -Stop cefepime, metronidazole -Obtain TTE -Repeat blood cultures in a.m. Thank you for the consult, we will continue to follow. Kimani Salazar MD [facility] ([facility] O: [phone] F: [phone]
--- NOTE | 2021-06-15 13:08 | Event Note ---
Date: 06/15/[address] imaging. The left psoas muscle is significantly enlarged compared to the right and there is 2 small fluid collections. These would not be amenable to drainage and would only be amenable to aspiration, but since the patient is already blood culture positive, I am not sure this is necessary. Recommend infectious disease consult to help identify the source of the infection.
--- NOTE | 2021-06-15 13:34 | Electrocardiograph Report ---
[facility] Test Date: 2021-06-13 Test Time: 23:54:53 Pat Name: RANULFO GUERRIER Department: Room: A383 Gender: M Bag Sealer: BAYRON : 1965 Requested By: DONOVAN NARVAEZ Order Number: [id number] Reading MD: Tad Borja Measurements Intervals [place] Rate: 97 P: 27 MA: 146 QRS: 37 QRSD: 103 T: 57 QT: 367 QTc: 468 Interpretive Statements Sinus rhythm No previous ECG available for comparison Electronically Signed On 06-15-2021 13:34:14 EDT by Tad Borja
[2021-06-15] MEDS: ONDANSETRON 4 MG/2 ML INJ IV PRN ×2 (14:48→19:02)
--- NOTE | 2021-06-15 15:21 | Consultation ---
History of Present Illness Consult date: 06/15/21 Reason for Consult: Weakness Chief complaint: Weakness History of present illness: 55 yo male, right-handed, with alcohol abuse, who presents with malaise, generalized weakness, light-headedness and difficulty with breathing for the last few weeks. His lower extremity strength worsened before the day of admission which led to a fall and led to his presentation to the ED. In the ED, CT Abd/Pelvis revealed possible left psoas abscess and distention of the bladder w/ bilateral hydronephrosis with a concern for a neurogenic bladder. He notes that he feels much better today than he ever did for the last few days. Notes he has better strength in all his extremities. He denies any spinal pain and denies any acute changes in his primary senses and notes no focal weakness/numbness/tingling. Past History Past Medical History: No medical history Past Surgical History: No surgical history Social history: alcohol abuse (Drinks alcohol almost on a daily basis) Family history: no significant family history Medications and Allergies Allergies Allergy/AdvReac Type Severity Reaction Status Date / Time No Known Allergies Allergy Verified 06/13/21 20:55 Home Medications Medication Instructions Recorded Confirmed Last Taken Type No Known Home Medications [No 06/14/21 06/14/21 Unknown History Reported Home Medications] Active Meds: Active Medications Acetaminophen (Acetaminophen 325 Mg Tab) 650 mg PO Q4H PRN PRN Reason: Pain MILD(1-3)/Fever >100.5/RIGGINS Sodium Chloride (Nacl 0.9% 1000 Ml) 1,000 mls @ 125 mls/hr IV DIRECT ALESSIO Vancomycin HCl (Vancomycin/Ns 1 Gm/250 Ml) 1 gm in 250 mls @ 166.667 mls/hr IV Q12H ALESSIO Last Admin: 06/15/21 09:30 Dose: 166.667 mls/hr Lorazepam (Lorazepam 2 Mg/Ml Vial) 2 mg IV Q1H PRN PRN Reason: CIWA-Ar 8-15 Lorazepam (Lorazepam 2 Mg/Ml Vial) 4 mg IV Q1H PRN PRN Reason: CIWA-Ar 16-25 Lorazepam (Lorazepam 2 Mg/Ml Vial) 4 mg IV Q15MIN PRN PRN Reason: CIWA-Ar >25 Magnesium Hydroxide (Magnesium Hydroxide (Mom) Oral Liqd Udc) 30 ml PO Q4H PRN PRN Reason: Constipation Last Admin: 06/15/21 09:31 Dose: 30 ml Morphine Sulfate (Morphine 2 Mg/1 Ml Inj) 2 mg IV Q4H PRN PRN Reason: Pain, Moderate (4-6) Last Admin: 06/15/21 09:30 Dose: 2 mg Morphine Sulfate (Morphine 4 Mg/1 Ml Inj) 4 mg IV Q4H PRN PRN Reason: Pain , Severe (7-10) Ondansetron HCl (Ondansetron 4 Mg/2 Ml Inj) 4 mg IV Q8H PRN PRN Reason: Nausea And Vomiting Last Admin: 06/15/21 14:48 Dose: 4 mg Sodium Chloride (Sodium Chloride 0.9% 10 Ml Flush Syringe) 10 ml IV BID ALESSIO Last Admin: 06/15/21 09:30 Dose: 10 ml Sodium Chloride (Sodium Chloride 0.9% 10 Ml Flush Syringe) 10 ml IV PRN PRN PRN Reason: LINE FLUSH Review of Systems All systems: negative (as per hpi;) Physical Examination - Vital Signs Vital Signs: Vital Signs Temp Pulse Resp BP Pulse Ox 100.0 F H 101 H 18 137/83 99 06/13/21 20:49 06/13/21 20:49 06/13/21 20:49 06/13/21 20:49 06/13/21 20:49 - Physical Exam Narrative exam: Gen: nad, well-nourished; Head: normocephalic; Eyes: no gaze deviation; no ptosis; ENT: normal vocalization; CVS: warm and well-perfused; Pulm: no respiratory distress; GI: appears non-distended; Ext: no cyanosis appreciated at distal extremities; rt foot edema/erythema; Skin: no acute rash at distal extremities; Heme: no pathologic ecchymosis appreciated at distal extremities; Neuro: alert, oriented to name, age, month, year, no dysarthria, no aphasia, CN 2 - PERRL, visual qureshi grossly intact, CN 3, 4, 6 - EOMI, CN 5 - facial sensation symmetric to light touch, CN 7 - facial movement symmetric, CN 8 - hearing grossly intact, CN 9, 10 - uvula midline, CN 11 symmetric shoulder movement, CN 12 - tongue midline; Motor - at least 4-/5 strength at all exts; Sensory - light touch symmetric, Cerebellar - fnf /hts intact, Gait - deferred secondary to fall risk; Results - Laboratory Findings CBC and BMP: 06/15/21 05:32 06/15/21 05:32 Abnormal Lab Findings: Abnormal Labs 06/14/21 06/14/21 06/14/21 00:01 00:01 04:30 WBC 18.6 H RBC Hgb Hct MCV 97 H MCH 34 H MCHC 35 H RDW 12.1 L Plt Count Lymph % (Auto) [place] % (Auto) Lymph # (Auto) [place] # (Auto) Seg Neutrophils % Seg Neuts % (Manual) 90.0 H Lymphocytes % (Manual) 5.0 L Seg Neutrophils # Seg Neutrophils # Man 16.7 H Lymphocytes # (Manual) 0.9 L Monocytes # (Manual) 0.9 H Sodium 122 L Potassium 3.4 L Chloride 79.0 L BUN Creatinine 0.4 L Glucose 122 H Calcium 7.6 L Magnesium 2.40 H Direct Bilirubin 0.3 H AST 112 H ALT 111 H Albumin 3.1 L Urine WBC (Auto) 06/14/21 06/15/21 06/15/21 Unknown 05:32 05:32 WBC 17.7 H RBC 3.38 L Hgb 11.1 L Hct 33.4 L MCV 99 H MCH 33 H MCHC RDW 12.1 L Plt Count 468 H Lymph % (Auto) 4.1 L [place] % (Auto) 8.8 H Lymph # (Auto) 0.7 L [place] # (Auto) 1.6 H Seg Neutrophils % 86.5 H Seg Neuts % (Manual) Lymphocytes % (Manual) Seg Neutrophils # 15.3 H Seg Neutrophils # Man Lymphocytes # (Manual) Monocytes # (Manual) Sodium 129 L D Potassium 3.5 L Chloride 88.0 L BUN 8 L Creatinine 0.3 L Glucose 104 H Calcium 7.3 L Magnesium Direct Bilirubin AST ALT Albumin Urine WBC (Auto) 31.0 H Assessment and Plan 55 yo male, right-handed, with alcohol abuse, who presents with malaise, generalized weakness, light-headedness and difficulty with breathing with improvement noted since treatment of underlying infection. 1. Epidural Abscess - confirm w/ mri c/t/l spine w/ wo contrast. 2. Generalized Weakness - pt/ot evaluation/monitoring. 3. Acute Ischemic Stroke (mech: ?embolic shower) - mri brain w/ wo contrast. 4. Neurogenic bladder / Constipation - mr mold tooler axis ordered. 5. Psoas abscess - confirm w/ mri lumbar paraspinal imaging to help confirm; treatment per ID or primary team. 6. Alcohol Abuse / Withdrawal - risk of vitamin b1 deficiency; monitor clinically; management per primary team. Ruslan Snyder MD Neurology [id number]
[2021-06-15] MEDS ORDERED: hydrALAZINE 20 MG/1 ML INJ IV PRN (19:59)
--- NOTE | 2021-06-15 20:24 | XRay Report ---
CHEST 1 VIEW 06/15/2021 7:09 PM INDICATION / CLINICAL INFORMATION: aspiration. COMPARISON: 06/14/2021 FINDINGS: SUPPORT DEVICES: None. HEART / MEDIASTINUM: No significant abnormality. LUNGS / PLEURA: Mild increased opacity in the right retrocardiac space. No pneumothorax. ADDITIONAL FINDINGS: No significant additional findings. IMPRESSION: 1. Mild increased opacity in the right retrocardiac space which may represent aspiration pneumonitis. Signer Name: Jewel Shay DO Signed: 06/15/2021 8:20 PM Workstation Name: [id number]
[2021-06-15] MEDS: NICOTINE 21 MG/24 HR PATCH TD SCH (20:49)
[2021-06-15] MEDS ORDERED: IPRATROPIUM/ALBUTEROL SULFATE 3 ML AMPUL.NEB IH ONE (22:00)
[2021-06-15] MEDS: carvediloL 12.5 MG TAB PO SCH (23:12)
--- NOTE | 2021-06-16 07:36 | Progress Note ---
Assessment and Plan CT scan with possible psoas muscle abscess. Findings are subtle. Continue IV antibiotics. Patient with a notably markedly distended bladder. Consider placing Banks catheter for this. We will continue to follow patient with you. Notes from [place] and [place] appreciated. Psoas muscle finding subtle at best cont iv ab. Cont hairston for seuroaxis site of infeciton. Consider ECHo to rule out sbe. Pt also with possible aspiration yesterday. wiled aspiration precautions. Pt also with positive covid test from 06/09/21. ?Retest now? Subjective Date of service: 06/16/21 Patient Reports: Positive: no new complaints, feels better Narrative: Notes from [place] and [place] appreciated. Psoas muscle finding subtle at best cont iv ab. Cont hairston for seuroaxis site of infeciton. Consider ECHo to rule out sbe. Pt also with possible aspioration yesterday. wiled aspiration precautions. Pt also with positive covid test from 06/09/21. ?Retest now? Objective Vital Signs - 12hr 06/15/21 06/15/21 06/15/21 20:27 21:11 22:00 Temperature Pulse Rate 109 H Pulse Rate [ 126 H Bilateral] Respiratory Rate Respiratory 19 Rate [Bilateral ] Blood Pressure 161/98 O2 Sat by Pulse 99 Oximetry 06/15/21 06/15/21 06/15/21 22:19 22:42 23:12 Temperature 98.9 F Pulse Rate 132 H 123 H Pulse Rate [ Bilateral] Respiratory 22 Rate Respiratory Rate [Bilateral ] Blood Pressure 141/90 O2 Sat by Pulse 98 98 Oximetry 06/16/21 03:58 Temperature 97.9 F Pulse Rate 101 H Pulse Rate [ Bilateral] Respiratory 21 Rate Respiratory Rate [Bilateral ] Blood Pressure 128/87 O2 Sat by Pulse 99 Oximetry - Labs 06/15/21 05:32 06/15/21 05:32
[2021-06-16 08:23] LABS: Hematocrit 38.5 % (35.5-45.6); Hemoglobin 12.9 gm/dl (11.8-15.2); Mean Corpuscular HGB Conc 33 % (32-34); Mean Corpuscular Volume 100 fl (84-94); Platelet Count 597 K/mm3 (140-440); Red Blood Count 3.86 M/mm3 (3.65-5.03); Red Cell Distribution Width 12.2 % (13.2-15.2)
[2021-06-16 08:31] LABS: INR 1.09 (0.87-1.13)
[2021-06-16 08:34] LABS: Blood Urea Nitrogen 11 mg/dL (9-20); Hemolysis Index 9
[2021-06-16 08:36] LABS: BUN/Creatinine Ratio 37
[2021-06-16] MEDS: carvediloL 12.5 MG TAB PO SCH ×2 (10:32→21:52)
[2021-06-16] MEDS: NICOTINE 21 MG/24 HR PATCH TD SCH (10:33)
[2021-06-16] MEDS: ONDANSETRON 4 MG/2 ML INJ IV PRN ×2 (10:34→16:39)
[2021-06-16 10:37] LABS: Band Neutrophils # (Manual) 1.3 K/mm3; Total Cells Counted 100
[2021-06-16 10:38] LABS: Basophils % (Manual) 0 % (0.0-1.8); Eosinophils % (Manual) 0 % (0.0-4.3)
[2021-06-16] MEDS: VANCOMYCIN/NS 1 GM/250 ML 1 GM/250 ML BAG IV SCH (10:40)
[2021-06-16 10:43] LABS: Anisocytosis Few; Hypochromasia Few; Macrocytosis Few; Stomatocytes Rare
[2021-06-16 10:44] LABS: Platelet Estimate Consistent w Auto
[2021-06-16] MEDS: VANCOMYCIN 1,500 MG in SODIUM CHLORIDE 0.9% 500 ML 500 ML IV SCH ×2 (11:00→23:41)
--- NOTE | 2021-06-16 13:19 | Progress Note ---
Assessment and Plan Assessment and plan: 59-year-old male presents emergency department with his family who reports she has been having 1 to 2-week history of progressively worsening weakness, fatigue, shortness of breath with occasional chest pain dizziness and sometimes altered mental status which has been waxing and waning and progressively worsening fashion since the onset. At the beginning of this month he was ambulatory on his own power and behaving normally and fully functional which significantly changed in the last 2 weeks currently over the last 2 to 3 days he has been unable to stand up or move his legs without assistance. CT of abdomen is showing a possible psoas muscle abscess on the left side. White count is elevated 18,000. Sepsis. Patient meets criteria given the tachycardia, altered mentation and diagnosis of psoas abscess/UTI. Acute hypoxic respiratory failure with possible aspiration POSSIBLE CVA Staff aureus bacteremia Aspiration pneumonia Psoas muscle abscess. UTI EtOH abuse/possible withdrawal Generalized weakness. Hydronephrosis ? Neurogenic bladder Hyponatremia Hypokalemia Transaminitis 06/14/2021. CT of the abdomen and pelvis shows expansive appearance of the left psoas muscle with central hypo-attenuating region possibly reflective of abscess, hematoma not excluded. Continue IV antibiotics. General surgery following. Moderately severe distention of the urinary bladder with associated bilateral hydronephrosis compatible with a component of reflux. No obvious obstructing lesion within the prostate or bladder base to suggest source of bladder outlet obstruction. Neurogenic bladder could be considered. Banks catheter placed. Consider urology consultation 06/15/2021. I discussed the case with surgery who recommends IR consultation for possible drain of left psoas muscle abscess. Continue IV antibiotics. ID consulted. Moderately severe distention of the urinary bladder with associated bilateral hydronephrosis compatible with a component of reflux. No obvious obstructing lesion within the prostate or bladder base to suggest source of bladder outlet obstruction. Neurogenic bladder could be considered. Banks catheter placed. Consider urology consultation. Appreciate GI input regarding transaminitis. Follow-up hepatitis panel. Further history elicited from the daughter noted patient with EtOH abuse. Continue CIWA protocol. Neurology consultation for progressive weakness. Follow-up blood and urine cultures. 06/16: Patient this morning remains on high flow oxygen with a salter nasal cannula at 10 L. I have gone ahead to consult pulmonary to assist us management. Also obtain a CT of the chest. CT of the head is negative. patient is still undergoing work-up for possible acute ischemic stroke with an MRI ordered. There is also TTE which will serve 2 purposes 1 to determine if there is an embolic phenomenon and also evaluate seeding of infection. ID and vascular/IR input is appreciated. MRI C/T/L spine is also pending Patient will need physical therapy Patient with worsening leukocytosis. ID adjusted antibiotic therapy. The high probability of a clinically significant, sudden or life threatening deterioration of the [PULMONARY] system(s) required my full and direct attention, intervention and personal management. The aggregate critical care time was [35] minutes. This time is in addition to time spent performing reported procedures but includes the following: [X] Data Review and interpretation [X] Patient assessment and monitoring of vital signs [X] Documentation [X] Medication orders and management History Interval history: Patient seen and examined this morning continues to complain of abdominal pain 2/10 in intensity. Discussed with nursing staff reports that the patient did have an aspiration episode yesterday following a coughing episode after medication was given. Is unclear if this was related to the medication but patient currently is salter nasal cannula 10 L he denies any chest pain. Hospitalist Physical - Physical exam Narrative exam: VITAL SIGNS: Reviewed. GENERAL: The patient appears a bit disheveled, mild respiratory DISTRESS vital signs as documented. HEAD: No signs of head trauma. EYES: Pupils are equal. Extraocular motions intact. Icteric sclera EARS: Hearing grossly intact. MOUTH: Oropharynx is normal. NECK: No adenopathy, no JVD. CHEST: Chest with crackles breath sounds bilaterally. No wheezes, rales, or rhonchi. CARDIAC: Regular rate and rhythm. S1 and S2, without murmurs, gallops, or rubs. VASCULAR: No Edema. Peripheral pulses normal and equal in all extremities. ABDOMEN: Soft, mildly tender, distended, no fluid shift no rebound or guarding, and no masses palpated. Bowel Sounds normal. MUSCULOSKELETAL: Good range of motion of all major joints. Extremities without clubbing, cyanosis or edema. NEUROLOGIC EXAM: Alert and oriented x 3 No focal sensory or strength deficits. Speech normal. Follows commands. Grenadian-speaking PSYCHIATRIC: Mood normal. SKIN: detail exam as documented in skin assessment - Constitutional Vitals: Temp Pulse Resp BP Pulse Ox 99.0 F 108 H 22 136/90 98 06/16/21 11:24 06/16/21 11:24 06/16/21 11:24 06/16/21 11:24 06/16/21 11:24 General appearance: Present: no acute distress, well-nourished HEART Score - HEART Score Troponin: Troponin T < 0.010 ng/mL (0.00-0.029) 06/14/21 00:01 Results - Labs CBC & Chem 7: 06/16/21 08:00 06/16/21 08:00 Labs: Laboratory Last Values WBC 21.5 K/mm3 (4.5-11.0) H 06/16/21 08:00 RBC 3.86 M/mm3 (3.65-5.03) 06/16/21 08:00 Hgb 12.9 gm/dl (11.8-15.2) 06/16/21 08:00 Hct 38.5 % (35.5-45.6) 06/16/21 08:00 MCV 100 fl (84-94) H 06/16/21 08:00 MCH 33 pg (28-32) H 06/16/21 08:00 MCHC 33 % (32-34) 06/16/21 08:00 RDW 12.2 % (13.2-15.2) L 06/16/21 08:00 Plt Count 597 K/mm3 (140-440) H 06/16/21 08:00 Lymph % (Auto) 4.1 % (13.4-35.0) L 06/15/21 05:32 Woodward % (Auto) 8.8 % (0.0-7.3) H 06/15/21 05:32 Eos % (Auto) 0.4 % (0.0-4.3) 06/15/21 05:32 Baso % (Auto) 0.2 % (0.0-1.8) 06/15/21 05:32 Lymph # (Auto) 0.7 K/mm3 (1.2-5.4) L 06/15/21 05:32 [place]ward # (Auto) 1.6 K/mm3 (0.0-0.8) H 06/15/21 05:32 Eos # (Auto) 0.1 K/mm3 (0.0-0.4) 06/15/21 05:32 Baso # (Auto) 0.0 K/mm3 (0.0-0.1) 06/15/21 05:32 Add Manual Diff Complete 06/16/21 08:00 Total Counted 100 06/16/21 08:00 Seg Neutrophils % 86.5 % (40.0-70.0) H 06/15/21 05:32 Seg Neuts % (Manual) 87.0 % (40.0-70.0) H 06/16/21 08:00 Band Neutrophils % 6.0 % 06/16/21 08:00 Lymphocytes % (Manual) 2.0 % (13.4-35.0) L 06/16/21 08:00 Reactive Lymphs % (Man) 0 % 06/16/21 08:00 Monocytes % (Manual) 4.0 % (0.0-7.3) 06/16/21 08:00 Eosinophils % (Manual) 0 % (0.0-4.3) 06/16/21 08:00 Basophils % (Manual) 0 % (0.0-1.8) 06/16/21 08:00 Metamyelocytes % 1.0 % 06/16/21 08:00 Myelocytes % 0 % 06/16/21 08:00 Promyelocytes % 0 % 06/16/21 08:00 Blast Cells % 0 % 06/16/21 08:00 Nucleated RBC % Not Reportable 06/16/21 08:00 Seg Neutrophils # 15.3 K/mm3 (1.8-7.7) H 06/15/21 05:32 Seg Neutrophils # Man 18.7 K/mm3 (1.8-7.7) H 06/16/21 08:00 Band Neutrophils # 1.3 K/mm3 06/16/21 08:00 Lymphocytes # (Manual) 0.4 K/mm3 (1.2-5.4) L 06/16/21 08:00 Abs React Lymphs (Man) 0.0 K/mm3 06/16/21 08:00 Monocytes # (Manual) 0.9 K/mm3 (0.0-0.8) H 06/16/21 08:00 Eosinophils # (Manual) 0.0 K/mm3 (0.0-0.4) 06/16/21 08:00 Basophils # (Manual) 0.0 K/mm3 (0.0-0.1) 06/16/21 08:00 Metamyelocytes # 0.2 K/mm3 06/16/21 08:00 Myelocytes # 0.0 K/mm3 06/16/21 08:00 Promyelocytes # 0.0 K/mm3 06/16/21 08:00 Blast Cells # 0.0 K/mm3 06/16/21 08:00 WBC Morphology Not Reportable 06/16/21 08:00 Hypersegmented Neuts Not Reportable 06/16/21 08:00 Hyposegmented Neuts 2+ 06/16/21 08:00 Hypogranular Neuts Not Reportable 06/16/21 08:00 Smudge Cells Not Reportable 06/16/21 08:00 Toxic Granulation Not Reportable 06/16/21 08:00 Toxic Vacuolation Not Reportable 06/16/21 08:00 Dohle Bodies Not Reportable 06/16/21 08:00 Pelger-Huet Anomaly Not Reportable 06/16/21 08:00 Reva Rods Not Reportable 06/16/21 08:00 Platelet Estimate Consistent w auto 06/16/21 08:00 Clumped Platelets Not Reportable 06/16/21 08:00 Plt Clumps, EDTA Not Reportable 06/16/21 08:00 Large Platelets Not Reportable 06/16/21 08:00 Giant Platelets Not Reportable 06/16/21 08:00 Platelet Satelliting Not Reportable 06/16/21 08:00 Plt Morphology Comment Not Reportable 06/16/21 08:00 RBC Morphology Not Reportable 06/16/21 08:00 Dimorphic RBCs Not Reportable 06/16/21 08:00 Polychromasia Not Reportable 06/16/21 08:00 Hypochromasia Few 06/16/21 08:00 Poikilocytosis Not Reportable 06/16/21 08:00 Anisocytosis Few 06/16/21 08:00 Microcytosis Not Reportable 06/16/21 08:00 Macrocytosis Few 06/16/21 08:00 Spherocytes Not Reportable 06/16/21 08:00 Pappenheimer Bodies Not Reportable 06/16/21 08:00 Sickle Cells Not Reportable 06/16/21 08:00 Target Cells Not Reportable 06/16/21 08:00 Tear Drop Cells Not Reportable 06/16/21 08:00 Ovalocytes Not Reportable 06/16/21 08:00 Stomatocytes Rare 06/16/21 08:00 Helmet Cells Not Reportable 06/16/21 08:00 [place] Bodies Not Reportable 06/16/21 08:00 [place] Rings Not Reportable 06/16/21 08:00 Glo Cells Not Reportable 06/16/21 08:00 Bite Cells Not Reportable 06/16/21 08:00 Crenated Cell Not Reportable 06/16/21 08:00 Elliptocytes Not Reportable 06/16/21 08:00 Acanthocytes (Spur) Not Reportable 06/16/21 08:00 Rouleaux Not Reportable 06/16/21 08:00 Hemoglobin C Crystals Not Reportable 06/16/21 08:00 Schistocytes Not Reportable 06/16/21 08:00 Malaria parasites Not Reportable 06/16/21 08:00 Warner Bodies Not Reportable 06/16/21 08:00 Hem Pathologist Commnt No 06/16/21 08:00 PT 15.4 Sec. (12.2-14.9) H 06/16/21 08:00 INR 1.09 (0.87-1.13) 06/16/21 08:00 Sodium 130 mmol/L (137-145) L 06/16/21 08:00 Potassium 4.2 mmol/L (3.6-5.0) 06/16/21 08:00 Chloride 89.5 mmol/L (98-107) L 06/16/21 08:00 Carbon Dioxide 29 mmol/L (22-30) 06/16/21 08:00 Anion Gap 16 mmol/L 06/16/21 08:00 BUN 11 mg/dL (9-20) 06/16/21 08:00 Creatinine 0.3 mg/dL (0.8-1.3) L 06/16/21 08:00 Estimated GFR > 60 ml/min 06/16/21 08:00 BUN/Creatinine Ratio 37 % 06/16/21 08:00 Glucose 171 mg/dL (75-100) H 06/16/21 08:00 POC Glucose 149 mg/dL (70-105) H 06/15/21 19:30 Lactic Acid 1.60 mmol/L (0.7-2.0) 06/14/21 00:01 Calcium 8.0 mg/dL (8.4-10.2) L 06/16/21 08:00 Magnesium 2.40 mg/dL (1.7-2.3) H 06/14/21 04:30 Total Bilirubin 1.00 mg/dL (0.1-1.2) 06/14/21 00:01 Direct Bilirubin 0.3 mg/dL (0-0.2) H 06/14/21 00:01 Indirect Bilirubin 0.7 mg/dL 06/14/21 00:01 AST 112 units/L (5-40) H 06/14/21 00:01 ALT 111 units/L (7-56) H 06/14/21 00:01 Alkaline Phosphatase 129 units/L (35-129) 06/14/21 00:01 Ammonia 28.0 umol/L (25-60) 06/14/21 00:01 Troponin T < 0.010 ng/mL (0.00-0.029) 06/14/21 00:01 Total Protein 6.6 g/dL (6.3-8.2) 06/14/21 00:01 Albumin 3.1 g/dL (3.9-5) L 06/14/21 00:01 Albumin/Globulin Ratio 0.9 % 06/14/21 00:01 Lipase 49 units/L (13-60) 06/14/21 00:01 Vitamin B12 > 2000 pg/mL (211-911) H 06/16/21 08:00 Urine Color Nga (Yellow) 06/14/21 Unknown Urine Turbidity Slightly-cloudy (Clear) 06/14/21 Unknown Urine pH 6.0 (5.0-7.0) 06/14/21 Unknown Ur Specific Taylor 1.016 (1.003-1.030) 06/14/21 Unknown Urine Protein 30 mg/dl mg/dL (Negative) 06/14/21 Unknown Urine Glucose (UA) Neg mg/dL (Negative) 06/14/21 Unknown Urine Ketones Neg mg/dL (Negative) 06/14/21 Unknown Urine Blood Mod (Negative) 06/14/21 Unknown Urine Nitrite Pos (Negative) 06/14/21 Unknown Urine Bilirubin Neg (Negative) 06/14/21 Unknown Urine Urobilinogen 4.0 mg/dL (<2.0) 06/14/21 Unknown Ur Leukocyte Esterase Sm (Negative) 06/14/21 Unknown Urine WBC (Auto) 31.0 /HPF (0.0-6.0) H 06/14/21 Unknown Urine RBC (Auto) 1.0 /HPF (0.0-6.0) 06/14/21 Unknown U Epithel Cells (Auto) < 1.0 /HPF (0-13.0) 06/14/21 Unknown Urine Bacteria (Auto) 1+ /HPF (Negative) 06/14/21 Unknown Vancomycin Trough 7.4 ug/mL (5.0-20.0) 06/16/21 08:00 Microbiology: Microbiology 06/14/21 04:30 Peripheral/Venous Blood Culture - Preliminary Staphylococcus Aureus 06/14/21 04:30 Peripheral/Venous Blood Culture - Preliminary Staphylococcus Aureus 06/14/21 Unknown Urine,Clean Catch Urine Culture - Preliminary Staphylococcus Aureus Banks/IV: Voiding Method Indwelling Catheter Active Medications - Current Medications Current Medications: Generic Name Dose Route Start Last Admin Trade Name Freq PRN Reason Stop Dose Admin Acetaminophen 650 mg 06/14/21 04:30 Acetaminophen 325 Mg Tab PO Q4H PRN Pain MILD(1-3)/Fever >100.5/RIGGINS Carvedilol 12.5 mg 06/15/21 22:00 06/16/21 10:32 Carvedilol 12.5 Mg Tab PO 12.5 mg BID ALESSIO Administration Hydralazine HCl 20 mg 06/15/21 19:59 06/15/21 21:11 Hydralazine 20 Mg/1 Ml Inj IV 20 mg Q4HR PRN Administration high bp Sodium Chloride 1,000 mls @ 125 mls/hr 06/14/21 04:30 Nacl 0.9% 1000 Ml IV DIRECT ALESSIO Vancomycin HCl 1,500 mg/ 530 mls @ 333.333 mls/hr 06/16/21 11:00 06/16/21 11:00 Sodium Chloride IV 333.333 mls/hr Q12H ALESSIO Administration Lorazepam 2 mg 06/14/21 04:30 06/15/21 18:15 Lorazepam 2 Mg/Ml Vial IV 2 mg Q1H PRN Administration CIWA-Ar 8-15 Lorazepam 4 mg 06/14/21 04:30 Lorazepam 2 Mg/Ml Vial IV Q1H PRN CIWA-Ar 16-25 Lorazepam 4 mg 06/14/21 04:30 Lorazepam 2 Mg/Ml Vial IV Q15MIN PRN CIWA-Ar >25 Magnesium Hydroxide 30 ml 06/14/21 04:30 06/15/21 15:44 Magnesium Hydroxide (Mom) Oral Liqd Udc PO 30 ml Q4H PRN Administration Constipation Morphine Sulfate 2 mg 06/14/21 04:30 06/15/21 15:43 Morphine 2 Mg/1 Ml Inj IV 2 mg Q4H PRN Administration Pain, Moderate (4-6) Morphine Sulfate 4 mg 06/14/21 04:30 Morphine 4 Mg/1 Ml Inj IV Q4H PRN Pain , Severe (7-10) Nicotine 21 mg 06/15/21 20:00 06/16/21 10:33 Nicotine 21 Mg/24 Hr Patch TD 21 mg QDAY ALESSIO Administration Ondansetron HCl 4 mg 06/14/21 04:30 06/16/21 10:34 Ondansetron 4 Mg/2 Ml Inj IV 4 mg Q8H PRN Administration Nausea And Vomiting Sodium Chloride 10 ml 06/14/21 10:00 06/16/21 10:34 Sodium Chloride 0.9% 10 Ml Flush Syringe IV 10 ml BID ALESSIO Administration Sodium Chloride 10 ml 06/14/21 04:30 Sodium Chloride 0.9% 10 Ml Flush Syringe IV PRN PRN LINE FLUSH
--- NOTE | 2021-06-16 14:08 | Progress Note ---
Assessment and Plan Cultures: Blood culture staph aureus Wound culture staph aureus A/P: 55-year-old man no known past medical history admitted with: #Acute sepsis: Present with fever leukocytosis. Secondary to gram-positive bacteremia and psoas abscess #Staph aureus bacteremia: Secondary to psoas abscess. Pending ADY #Left psoas abscess: Evaluated by IR, not amenable to percutaneous drainage, only aspiration. His sepsis resolved with antibiotics only, and if blood cultures clear agree no need for aspiration. If blood cultures remain persistently positive, would recommend aspiration for source control. Recs: -Continue vancomycin goal trough 10-20 -Repeat blood cultures in a.m. Thank you for the consult, we will continue to follow. Kimani Salazar MD [facility] ([facility] O: [phone] F: [phone] Subjective Date of service: 06/16/21 Interval history: Afebrile, white count of 21.5. Labs with staph aureus. ADY of this is pending. Imaging personally reviewed: TTE: No evidence vegetation and tach in the difficult study. Chest x-ray: Increasing opacity in the right lung Objective - Exam Narrative Exam: Physical Exam: Constitutional: Alert, cooperative. No acute distress Head, Ears, Nose: Normocephalic, atraumatic. External ears, nose normal Eyes: Conjunctivae/corneas clear. No icterus. No ptosis. Neck: Supple, no meningeal signs Oral: dentition fair, no thrush Cardiovascular: S1, S2 normal. Respiratory: Good air entry, clear to auscultation bilaterally GI: Soft, non-tender; bowel sounds normal. No peritoneal signs. Musculoskeletal: No pedal edema, no cyanosis. Skin: No rash or abscess Hem/Lymphatic: No palpable cervical or supraclavicular nodes. No lymphangitis Psych: Mood ok. Affect normal Neurological: Awake, alert, oriented. No gross abnormality - Constitutional Vitals: Vital Signs Temp Pulse Resp BP Pulse Ox 99.0 F 108 H 22 136/90 98 06/16/21 11:24 06/16/21 11:24 06/16/21 11:24 06/16/21 11:24 06/16/21 11:24 Temperature -Last 24 Hours Temperature 99.0 F Temperature 97.9 F Temperature 98.9 F Temperature 98.3 F - Labs CBC & Chem 7: 06/16/21 08:00 06/16/21 08:00 Labs: Abnormal lab results 06/15/21 06/16/21 06/16/21 Range/Units 19:30 08:00 08:00 WBC 21.5 H (4.5-11.0) K/mm3 MCV 100 H (84-94) fl MCH 33 H (28-32) pg RDW 12.2 L (13.2-15.2) % Plt Count 597 H (140-440) K/mm3 Seg Neuts % (Manual) 87.0 H (40.0-70.0) % Lymphocytes % (Manual) 2.0 L (13.4-35.0) % Seg Neutrophils # Man 18.7 H (1.8-7.7) K/mm3 Lymphocytes # (Manual) 0.4 L (1.2-5.4) K/mm3 Monocytes # (Manual) 0.9 H (0.0-0.8) K/mm3 PT 15.4 H (12.2-14.9) Sec. Sodium (137-145) mmol/L Chloride (98-107) mmol/L Creatinine (0.8-1.3) mg/dL Glucose (75-100) mg/dL POC Glucose 149 H (70-105) mg/dL Calcium (8.4-10.2) mg/dL Vitamin B12 (211-911) pg/mL 06/16/21 06/16/21 Range/Units 08:00 08:00 WBC (4.5-11.0) K/mm3 MCV (84-94) fl MCH (28-32) pg RDW (13.2-15.2) % Plt Count (140-440) K/mm3 Seg Neuts % (Manual) (40.0-70.0) % Lymphocytes % (Manual) (13.4-35.0) % Seg Neutrophils # Man (1.8-7.7) K/mm3 Lymphocytes # (Manual) (1.2-5.4) K/mm3 Monocytes # (Manual) (0.0-0.8) K/mm3 PT (12.2-14.9) Sec. Sodium 130 L (137-145) mmol/L Chloride 89.5 L (98-107) mmol/L Creatinine 0.3 L (0.8-1.3) mg/dL Glucose 171 H (75-100) mg/dL POC Glucose (70-105) mg/dL Calcium 8.0 L (8.4-10.2) mg/dL Vitamin B12 > 2000 H (211-911) pg/mL
[2021-06-16] MEDS: MORPHINE 2 MG/1 ML INJ IV PRN ×2 (16:38→21:57)
[2021-06-16] MEDS: SODIUM CHLORIDE 0.9% 1000 ML 1,000 ML IV SCH (16:39)
[2021-06-17] MEDS: SODIUM CHLORIDE 0.9% 1000 ML 1,000 ML IV SCH (04:24)
[2021-06-17 06:24] LABS: Hemoglobin 11.6 gm/dl (11.8-15.2); Mean Corpuscular HGB Conc 33 % (32-34); Mean Corpuscular Volume 99 fl (84-94); Platelet Count 594 K/mm3 (140-440); Red Blood Count 3.55 M/mm3 (3.65-5.03); Red Cell Distribution Width 12.2 % (13.2-15.2)
[2021-06-17 06:39] LABS: Blood Urea Nitrogen 10 mg/dL (9-20); Calcium 7.9 mg/dL (8.4-10.2); Hemolysis Index 3
[2021-06-17 06:48] LABS: BUN/Creatinine Ratio 33
[2021-06-17] MEDS: NICOTINE 21 MG/24 HR PATCH TD SCH (11:01)
[2021-06-17] MEDS: carvediloL 12.5 MG TAB PO SCH ×2 (11:02→22:20)
[2021-06-17] MEDS: VANCOMYCIN 1,500 MG in SODIUM CHLORIDE 0.9% 500 ML 500 ML IV SCH (11:04)
--- NOTE | 2021-06-17 11:33 | XRay Report ---
ABDOMEN 1 VIEW(S) INDICATION / CLINICAL INFORMATION: sbo. COMPARISON: CT 06/14/2021 FINDINGS: TUBES / LINES: None. BOWEL GAS PATTERN: Numerous loops of gaseous distended and dilated small bowel and stomach. ADDITIONAL FINDINGS: No significant additional findings. IMPRESSION: 1. Multiple loops of gaseous distended small bowel compatible with either small bowel obstruction or ileus. Signer Name: Rohith Newell MD Signed: 06/17/2021 11:28 AM Workstation Name: [id number]
--- NOTE | 2021-06-17 11:33 | Magnetic Resonance Report ---
MRI BRAIN WITHOUT AND WITH CONTRAST INDICATION / CLINICAL INFORMATION: embolic strokes or metastasis PATIENT MOTION, REPEATED SCANS, BEST POSSIBLE STUDY. TECHNIQUE: Multisequence, multiplanar images were obtained. Post contrast imaging was performed following 16 cc of clear scanner intravenously. COMPARISON: None available. FINDINGS: CEREBRAL and CEREBELLAR HEMISPHERES: No evidence of mass or mass effect. No midline shift. No acute hemorrhage. No diffusion restriction to suggest acute infarct. No extra-axial fluid collection. N o significant microangiopathy are chronic infarct. VENTRICLES: Normal in size and configuration for age. VISUALIZED ORBITS: No significant abnormality. VISUALIZED PARANASAL SINUSES: There is minimal chronic mucosal thickening in the ethmoid and maxillar y sinuses. The remaining sinuses and mastoid air cells are clear. ADDITIONAL FINDINGS: None. IMPRESSION: No acute intracranial abnormality. No evidence for acute ischemia or metastatic disease. Minimal chronic sinus disease. Signer Name: German Rebollar Jr, MD Signed: 06/17/2021 11:28 AM Workstation Name: [id number]
--- NOTE | 2021-06-17 12:20 | Magnetic Resonance Report ---
MRI CERVICAL SPINE WITHOUT AND WITH CONTRAST INDICATION / CLINICAL INFORMATION: epidural abscess, DIZZINESS, ARM PAIN LOLA., WEAKNESS, NECKPAIN. TECHNIQUE: Multisequence, multiplanar images of the cervical spine were obtained. COMPARISON: None available. FINDINGS: Epidural abscess: Ventral cervical epidural abscess extending from the C4 vertebral body level toward s C7 vertebral body level. Epidural abscess measures 3 mm in the sagittal dimension and 1.5 cm in the transverse dimension. Dura l sac and the spinal cord are markedly displaced posteriorly. Prevertebral space abscess: Extends from C4-C5 disc level up to C7-T1 disc level; more towards the le ft side any: Large bilateral lateral extension along the scalene muscles; inferior extent of the absc ess would be commented on the MRI scan of the thoracic spine Dorsal epidural space: No abscess but thickened soft tissue Dural sac and the spinal cord: Displaced posteriorly; sagittal T2 and STIR images are limited by jesús facts; no focal signal intensity changes in the cervical cord CRANIOCERVICAL JUNCTION:No significant abnormality. ALIGNMENT: Mild straightening of cervical lordosis VERTEBRAE:Abnormal marrow signal at C5 and C6 vertebral bodies; endplates at the disc level well pres erved; enhancement in; with the presence of epidural abscess, findings here are suggestive of osteomy elitis [id number] ANALYSIS: C2-3: No significant disc abnormality, spinal canal stenosis, or neural foraminal stenosis. C3-4: Disc profile and the neuroforamina are normal; moderate left facet joint degenerative changes C4-5: Trace anterolisthesis; epidural abscess seen at this level displacing the dural sac on the righ t side; mild facet joint degenerative changes C5-6: Abnormal disc level; increased T2 signal intensity without enhancement suggest infected disc sp germán; retrolisthesis; neuroforamina are normal C6-7: Abnormal disc level; increased T2 signal intensity without enhancement suggest abscess C7-T1: Anterolisthesis; neuroforamina are normal PARASPINAL SOFT TISSUES: Marked ligamentous changes in the paraspinal soft tissues ADDITIONAL FINDINGS: None. IMPRESSION: Abnormal MRI scan Ventral epidural abscess from C4 to C7 displacing the dural sac; MR findings suggest discitis and ost eomyelitis at C5-C6 and C6-C7 levels; epidural abscess probably from the C5-C6 disc level Prevertebral soft tissue mass; large bilateral lateral extensions of abscesses more on the left side along the scalene muscles Signer Name: Tommie Branch MD Signed: 06/17/2021 12:16 PM Workstation Name: [id number]
--- NOTE | 2021-06-17 13:18 | Consultation ---
History of Present Illness Consult date: 06/17/21 Requesting physician: JOSEHP MORENO Reason for consult: hypoxemia History of present illness: 55 y/o male admitted with weakness and fatigue with general overall malaise, found to have psoas muscle abscess. Developed hypoxemia on Tuesday night requiring 1o liter salter. Pulmonary was consulted after CXR suggested aspi ration pneumonitis. Patient is currently asleep and family is at the bedside. Past History Past Medical History: No medical history Past Surgical History: No surgical history Social history: alcohol abuse (Drinks alcohol almost on a daily basis) Family history: no significant family history Medications and Allergies Allergies Allergy/AdvReac Type Severity Reaction Status Date / Time No Known Allergies Allergy Verified 06/13/21 20:55 Home Medications Medication Instructions Recorded Confirmed Last Taken Type No Known Home Medications [No 06/14/21 06/14/21 Unknown History Reported Home Medications] Active Meds: Active Medications Acetaminophen (Acetaminophen 325 Mg Tab) 650 mg PO Q4H PRN PRN Reason: Pain MILD(1-3)/Fever >100.5/RIGGINS Carvedilol (Carvedilol 12.5 Mg Tab) 12.5 mg PO BID ALESSIO Last Admin: 06/17/21 11:02 Dose: 12.5 mg Hydralazine HCl (Hydralazine 20 Mg/1 Ml Inj) 20 mg IV Q4HR PRN PRN Reason: high bp Last Admin: 06/15/21 21:11 Dose: 20 mg Sodium Chloride (Nacl 0.9% 1000 Ml) 1,000 mls @ 125 mls/hr IV DIRECT ALESSIO Last Admin: 06/17/21 04:24 Dose: 125 mls/hr Vancomycin HCl 1,500 mg/ (Sodium Chloride) 530 mls @ 333.333 mls/hr IV Q12H ALESSIO Last Admin: 06/17/21 11:04 Dose: 333.333 mls/hr Lorazepam (Lorazepam 2 Mg/Ml Vial) 2 mg IV Q1H PRN PRN Reason: CIWA-Ar 8-15 Last Admin: 06/15/21 18:15 Dose: 2 mg Lorazepam (Lorazepam 2 Mg/Ml Vial) 4 mg IV Q1H PRN PRN Reason: CIWA-Ar 16-25 Lorazepam (Lorazepam 2 Mg/Ml Vial) 4 mg IV Q15MIN PRN PRN Reason: CIWA-Ar >25 Magnesium Hydroxide (Magnesium Hydroxide (Mom) Oral Liqd Udc) 30 ml PO Q4H PRN PRN Reason: Constipation Last Admin: 06/15/21 15:44 Dose: 30 ml Morphine Sulfate (Morphine 2 Mg/1 Ml Inj) 2 mg IV Q4H PRN PRN Reason: Pain, Moderate (4-6) Last Admin: 06/16/21 21:57 Dose: 2 mg Morphine Sulfate (Morphine 4 Mg/1 Ml Inj) 4 mg IV Q4H PRN PRN Reason: Pain , Severe (7-10) Nicotine (Nicotine 21 Mg/24 Hr Patch) 21 mg TD QDAY [facility] Last Admin: 06/17/21 11:01 Dose: 21 mg Ondansetron HCl (Ondansetron 4 Mg/2 Ml Inj) 4 mg IV Q8H PRN PRN Reason: Nausea And Vomiting Last Admin: 06/16/21 16:39 Dose: 4 mg Sodium Chloride (Sodium Chloride 0.9% 10 Ml Flush Syringe) 10 ml IV BID [facility] Last Admin: 06/17/21 11:02 Dose: 10 ml Sodium Chloride (Sodium Chloride 0.9% 10 Ml Flush Syringe) 10 ml IV PRN PRN PRN Reason: LINE FLUSH Physical Examination Vital signs: Vital Signs Temp Pulse Resp BP Pulse Ox 100.0 F H 101 H 18 137/83 99 06/13/21 20:49 06/13/21 20:49 06/13/21 20:49 06/13/21 20:49 06/13/21 20:49 Results - Laboratory Findings CBC and BMP: 06/17/21 06:01 06/17/21 06:01 PT/INR, D-dimer PT 15.4 Sec. (12.2-14.9) H 06/16/21 08:00 INR 1.09 (0.87-1.13) 06/16/21 08:00 Abnormal lab findings: Abnormal Labs 06/14/21 06/14/21 06/14/21 00:01 00:01 04:30 WBC 18.6 H RBC Hgb Hct MCV 97 H MCH 34 H MCHC 35 H RDW 12.1 L Plt Count Lymph % (Auto) [place] % (Auto) Lymph # (Auto) [place] # (Auto) Seg Neutrophils % Seg Neuts % (Manual) 90.0 H Lymphocytes % (Manual) 5.0 L Seg Neutrophils # Seg Neutrophils # Man 16.7 H Lymphocytes # (Manual) 0.9 L Monocytes # (Manual) 0.9 H PT Sodium 122 L Potassium 3.4 L Chloride 79.0 L BUN Creatinine 0.4 L Glucose 122 H POC Glucose Calcium 7.6 L Magnesium 2.40 H Direct Bilirubin 0.3 H AST 112 H ALT 111 H Albumin 3.1 L Vitamin B12 Urine WBC (Auto) 06/14/21 06/15/21 06/15/21 Unknown 05:32 05:32 WBC 17.7 H RBC 3.38 L Hgb 11.1 L Hct 33.4 L MCV 99 H MCH 33 H MCHC RDW 12.1 L Plt Count 468 H Lymph % (Auto) 4.1 L [place] % (Auto) 8.8 H Lymph # (Auto) 0.7 L [place] # (Auto) 1.6 H Seg Neutrophils % 86.5 H Seg Neuts % (Manual) Lymphocytes % (Manual) Seg Neutrophils # 15.3 H Seg Neutrophils # Man Lymphocytes # (Manual) Monocytes # (Manual) PT Sodium 129 L D Potassium 3.5 L Chloride 88.0 L BUN 8 L Creatinine 0.3 L Glucose 104 H POC Glucose Calcium 7.3 L Magnesium Direct Bilirubin AST ALT Albumin Vitamin B12 Urine WBC (Auto) 31.0 H 06/15/21 06/16/21 06/16/21 19:30 08:00 08:00 WBC 21.5 H RBC Hgb Hct MCV 100 H MCH 33 H MCHC RDW 12.2 L Plt Count 597 H Lymph % (Auto) [place] % (Auto) Lymph # (Auto) [place] # (Auto) Seg Neutrophils % Seg Neuts % (Manual) 87.0 H Lymphocytes % (Manual) 2.0 L Seg Neutrophils # Seg Neutrophils # Man 18.7 H Lymphocytes # (Manual) 0.4 L Monocytes # (Manual) 0.9 H PT 15.4 H Sodium Potassium Chloride BUN Creatinine Glucose POC Glucose 149 H Calcium Magnesium Direct Bilirubin AST ALT Albumin Vitamin B12 Urine WBC (Auto) 06/16/21 06/16/21 06/17/21 08:00 08:00 06:01 WBC 17.3 H RBC 3.55 L Hgb 11.6 L Hct 35.0 L MCV 99 H MCH 33 H MCHC RDW 12.2 L Plt Count 594 H Lymph % (Auto) [place] % (Auto) Lymph # (Auto) [place] # (Auto) Seg Neutrophils % Seg Neuts % (Manual) Lymphocytes % (Manual) Seg Neutrophils # Seg Neutrophils # Man Lymphocytes # (Manual) Monocytes # (Manual) PT Sodium 130 L Potassium Chloride 89.5 L BUN Creatinine 0.3 L Glucose 171 H POC Glucose Calcium 8.0 L Magnesium Direct Bilirubin AST ALT Albumin Vitamin B12 > 2000 H Urine WBC (Auto) 06/17/21 06:01 WBC RBC Hgb Hct MCV MCH MCHC RDW Plt Count Lymph % (Auto) [place] % (Auto) Lymph # (Auto) [place] # (Auto) Seg Neutrophils % Seg Neuts % (Manual) Lymphocytes % (Manual) Seg Neutrophils # Seg Neutrophils # Man Lymphocytes # (Manual) Monocytes # (Manual) PT Sodium 130 L Potassium Chloride 91.7 L BUN Creatinine 0.3 L Glucose 107 H POC Glucose Calcium 7.9 L Magnesium Direct Bilirubin AST ALT Albumin Vitamin B12 Urine WBC (Auto) - Diagnostic Findings Chest x-ray: image reviewed Assessment and Plan 55 y/o male with acute respiratory failure 1. Possible sirs response given abscess 2. WEan FiO2 for sats>88% and or patient comfort 3. Hold on abx therapy for lungs
--- NOTE | 2021-06-17 13:31 | Progress Note ---
Assessment and Plan Assessment and plan: 59-year-old male presents emergency department with his family who reports she has been having 1 to 2-week history of progressively worsening weakness, fatigue, shortness of breath with occasional chest pain dizziness and sometimes altered mental status which has been waxing and waning and progressively worsening fashion since the onset. At the beginning of this month he was ambulatory on his own power and behaving normally and fully functional which significantly changed in the last 2 weeks currently over the last 2 to 3 days he has been unable to stand up or move his legs without assistance. CT of abdomen is showing a possible psoas muscle abscess on the left side. White count is elevated 18,000. Sepsis. Patient meets criteria given the tachycardia, altered mentation and diagnosis of psoas abscess/UTI. 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 UTI EtOH abuse/possible withdrawal Generalized weakness. Hydronephrosis ? Neurogenic bladder Hyponatremia Hypokalemia Transaminitis 06/14/2021. CT of the abdomen and pelvis shows expansive appearance of the left psoas muscle with central hypo-attenuating region possibly reflective of abscess, hematoma not excluded. Continue IV antibiotics. General surgery f ollowing. Moderately severe distention of the urinary bladder with associated bilateral hydronephrosis compatible with a component of reflux. No obvious obstructing lesion within the prostate or bladder base to suggest source of bladder outlet obstruction. Neurogenic bladder could be considered. Banks catheter placed. Consider urology consultation 06/15/2021. I discussed the case with surgery who recommends IR consultation for possible drain of left psoas muscle abscess. Continue IV antibiotics. ID consulted. Moderately severe distention of the urinary bladder with associated bilateral hydronephrosis compatible with a component of reflux. No obvious obstructing lesion within the prostate or bladder base to suggest source of bladder outlet obstruction. Neurogenic bladder could be considered. Banks catheter placed. Consider urology consultation. Appreciate GI input regarding transaminitis. Follow-up hepatitis panel. Further history elicited from the daughter noted patient with EtOH abuse. Continue CIWA protocol. Neurology consultation for progressive weakness. Follow-up blood and urine cultures. 06/16: Patient this morning remains on high flow oxygen with a salter nasal cannula at 10 L. I have gone ahead to consult pulmonary to assist us management. Also obtain a CT of the chest. CT of the head is negative. patient is still undergoing work-up for possible acute ischemic stroke with an MRI ordered. There is also TTE which will serve 2 purposes 1 to determine if there is an embolic phenomenon and also evaluate seeding of infection. ID and vascular/IR input is appreciated. MRI C/T/L spine is also pending Patient will need physical therapy Patient with worsening leukocytosis. ID adjusted antibiotic therapy. 06/17: Patient continues with distended abdomen KUB done this morning reveals ileus versus obstruction discussed with surgery we will place an NG tube to low intermittent suction for decompression. Leukocytosis is improving. 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 The high probability of a clinically significant, sudden or life threatening de terioration of the [PULMONARY] system(s) required my full and direct attention, intervention and personal management. The aggregate critical care time was [35] minutes. This time is in addition to time spent performing reported procedures but includes the following: [X] Data Review and interpretation [X] Patient assessment and monitoring of vital signs [X] Documentation [X] Medication orders and management History Interval history: Patient seen and examined this morning while no complaint of abdominal pain he complains of abdominal distention this was echoed by the daughter. He has not had a bowel movement in 5 days per patient but did not Hospitalist Physical - Physical exam Narrative exam: VITAL SIGNS: Reviewed. GENERAL: The patient appears a bit disheveled, no distress vital signs as documented. HEAD: No signs of head trauma. EYES: Pupils are equal. Extraocular motions intact. Icteric sclera EARS: Hearing grossly intact. MOUTH: Oropharynx is normal. NECK: No adenopathy, no JVD. CHEST: Chest with crackles breath sounds bilaterally. No wheezes, rales, or rhonchi. CARDIAC: Regular rate and rhythm. S1 and S2, without murmurs, gallops, or rubs. VASCULAR: No Edema. Peripheral pulses normal and equal in all extremities. ABDOMEN: Soft, mildly tender, distended, no fluid shift no rebound or guarding, and no masses palpated. Bowel Sounds normal. MUSCULOSKELETAL: Good range of motion of all major joints. Extremities without clubbing, cyanosis or edema. NEUROLOGIC EXAM: Alert and oriented x 3 No focal sensory or strength deficits. Speech normal. Follows commands. Turkish-speaking PSYCHIATRIC: Mood normal. SKIN: detail exam as documented in skin assessment - Constitutional Vitals: Temp Pulse Resp BP Pulse Ox 98.7 F 79 20 139/84 97 06/17/21 05:40 06/17/21 05:40 06/17/21 05:40 06/17/21 05:40 06/17/21 05:40 General appearance: Present: no acute distress, well-nourished HEART Score - HEART Score Troponin: Troponin T < 0.010 ng/mL (0.00-0.029) 06/14/21 00:01 Results - Labs CBC & Chem 7: 06/17/21 06:01 06/17/21 06:01 Labs: Laboratory Last Values WBC 17.3 K/mm3 (4.5-11.0) H 06/17/21 06:01 RBC 3.55 M/mm3 (3.65-5.03) L 06/17/21 06:01 Hgb 11.6 gm/dl (11.8-15.2) L 06/17/21 06:01 Hct 35.0 % (35.5-45.6) L 06/17/21 06:01 MCV 99 fl (84-94) H 06/17/21 06:01 MCH 33 pg (28-32) H 06/17/21 06:01 MCHC 33 % (32-34) 06/17/21 06:01 RDW 12.2 % (13.2-15.2) L 06/17/21 06:01 Plt Count 594 K/mm3 (140-440) H 06/17/21 06:01 Lymph % (Auto) 4.1 % (13.4-35.0) L 06/15/21 05:32 [place] % (Auto) 8.8 % (0.0-7.3) H 06/15/21 05:32 Eos % (Auto) 0.4 % (0.0-4.3) 06/15/21 05:32 Baso % (Auto) 0.2 % (0.0-1.8) 06/15/21 05:32 Lymph # (Auto) 0.7 K/mm3 (1.2-5.4) L 06/15/21 05:32 [place] # (Auto) 1.6 K/mm3 (0.0-0.8) H 06/15/21 05:32 Eos # (Auto) 0.1 K/mm3 (0.0-0.4) 06/15/21 05:32 Baso # (Auto) 0.0 K/mm3 (0.0-0.1) 06/15/21 05:32 Add Manual Diff Complete 06/16/21 08:00 Total Counted 100 06/16/21 08:00 Seg Neutrophils % 86.5 % (40.0-70.0) H 06/15/21 05:32 Seg Neuts % (Manual) 87.0 % (40.0-70.0) H 06/16/21 08:00 Band Neutrophils % 6.0 % 06/16/21 08:00 Lymphocytes % (Manual) 2.0 % (13.4-35.0) L 06/16/21 08:00 Reactive Lymphs % (Man) 0 % 06/16/21 08:00 Monocytes % (Manual) 4.0 % (0.0-7.3) 06/16/21 08:00 Eosinophils % (Manual) 0 % (0.0-4.3) 06/16/21 08:00 Basophils % (Manual) 0 % (0.0-1.8) 06/16/21 08:00 Metamyelocytes % 1.0 % 06/16/21 08:00 Myelocytes % 0 % 06/16/21 08:00 Promyelocytes % 0 % 06/16/21 08:00 Blast Cells % 0 % 06/16/21 08:00 Nucleated RBC % Not Reportable 06/16/21 08:00 Seg Neutrophils # 15.3 K/mm3 (1.8-7.7) H 06/15/21 05:32 Seg Neutrophils # Man 18.7 K/mm3 (1.8-7.7) H 06/16/21 08:00 Band Neutrophils # 1.3 K/mm3 06/16/21 08:00 Lymphocytes # (Manual) 0.4 K/mm3 (1.2-5.4) L 06/16/21 08:00 Abs React Lymphs (Man) 0.0 K/mm3 06/16/21 08:00 Monocytes # (Manual) 0.9 K/mm3 (0.0-0.8) H 06/16/21 08:00 Eosinophils # (Manual) 0.0 K/mm3 (0.0-0.4) 06/16/21 08:00 Basophils # (Manual) 0.0 K/mm3 (0.0-0.1) 06/16/21 08:00 Metamyelocytes # 0.2 K/mm3 06/16/21 08:00 Myelocytes # 0.0 K/mm3 06/16/21 08:00 Promyelocytes # 0.0 K/mm3 06/16/21 08:00 Blast Cells # 0.0 K/mm3 06/16/21 08:00 WBC Morphology Not Reportable 06/16/21 08:00 Hypersegmented Neuts Not Reportable 06/16/21 08:00 Hyposegmented Neuts 2+ 06/16/21 08:00 Hypogranular Neuts Not Reportable 06/16/21 08:00 Smudge Cells Not Reportable 06/16/21 08:00 Toxic Granulation Not Reportable 06/16/21 08:00 Toxic Vacuolation Not Reportable 06/16/21 08:00 Dohle Bodies Not Reportable 06/16/21 08:00 Pelger-Huet Anomaly Not Reportable 06/16/21 08:00 Reva Rods Not Reportable 06/16/21 08:00 Platelet Estimate Consistent w auto 06/16/21 08:00 Clumped Platelets Not Reportable 06/16/21 08:00 Plt Clumps, EDTA Not Reportable 06/16/21 08:00 Large Platelets Not Reportable 06/16/21 08:00 Giant Platelets Not Reportable 06/16/21 08:00 Platelet Satelliting Not Reportable 06/16/21 08:00 Plt Morphology Comment Not Reportable 06/16/21 08:00 RBC Morphology Not Reportable 06/16/21 08:00 Dimorphic RBCs Not Reportable 06/16/21 08:00 Polychromasia Not Reportable 06/16/21 08:00 Hypochromasia Few 06/16/21 08:00 Poikilocytosis Not Reportable 06/16/21 08:00 Anisocytosis Few 06/16/21 08:00 Microcytosis Not Reportable 06/16/21 08:00 Macrocytosis Few 06/16/21 08:00 Spherocytes Not Reportable 06/16/21 08:00 Pappenheimer Bodies Not Reportable 06/16/21 08:00 Sickle Cells Not Reportable 06/16/21 08:00 Target Cells Not Reportable 06/16/21 08:00 Tear Drop Cells Not Reportable 06/16/21 08:00 Ovalocytes Not Reportable 06/16/21 08:00 Stomatocytes Rare 06/16/21 08:00 Helmet Cells Not Reportable 06/16/21 08:00 [place] Bodies Not Reportable 06/16/21 08:00 [place] Rings Not Reportable 06/16/21 08:00 Glo Cells Not Reportable 06/16/21 08:00 Bite Cells Not Reportable 06/16/21 08:00 Crenated Cell Not Reportable 06/16/21 08:00 Elliptocytes Not Reportable 06/16/21 08:00 Acanthocytes (Spur) Not Reportable 06/16/21 08:00 Rouleaux Not Reportable 06/16/21 08:00 Hemoglobin C Crystals Not Reportable 06/16/21 08:00 Schistocytes Not Reportable 06/16/21 08:00 Malaria parasites Not Reportable 06/16/21 08:00 [place] Bodies Not Reportable 06/16/21 08:00 Hem Pathologist Commnt No 06/16/21 08:00 PT 15.4 Sec. (12.2-14.9) H 06/16/21 08:00 INR 1.09 (0.87-1.13) 06/16/21 08:00 Sodium 130 mmol/L (137-145) L 06/17/21 06:01 Potassium 4.1 mmol/L (3.6-5.0) 06/17/21 06:01 Chloride 91.7 mmol/L (98-107) L 06/17/21 06:01 Carbon Dioxide 30 mmol/L (22-30) 06/17/21 06:01 Anion Gap 12 mmol/L 06/17/21 06:01 BUN 10 mg/dL (9-20) 06/17/21 06:01 Creatinine 0.3 mg/dL (0.8-1.3) L 06/17/21 06:01 Estimated GFR > 60 ml/min 06/17/21 06:01 BUN/Creatinine Ratio 33 % 06/17/21 06:01 Glucose 107 mg/dL (75-100) H 06/17/21 06:01 POC Glucose 149 mg/dL (70-105) H 06/15/21 19:30 Lactic Acid 1.60 mmol/L (0.7-2.0) 06/14/21 00:01 Calcium 7.9 mg/dL (8.4-10.2) L 06/17/21 06:01 Magnesium 2.40 mg/dL (1.7-2.3) H 06/14/21 04:30 Total Bilirubin 1.00 mg/dL (0.1-1.2) 06/14/21 00:01 Direct Bilirubin 0.3 mg/dL (0-0.2) H 06/14/21 00:01 Indirect Bilirubin 0.7 mg/dL 06/14/21 00:01 AST 112 units/L (5-40) H 06/14/21 00:01 ALT 111 units/L (7-56) H 06/14/21 00:01 Alkaline Phosphatase 129 units/L (35-129) 06/14/21 00:01 Ammonia 28.0 umol/L (25-60) 06/14/21 00:01 Troponin T < 0.010 ng/mL (0.00-0.029) 06/14/21 00:01 Total Protein 6.6 g/dL (6.3-8.2) 06/14/21 00:01 Albumin 3.1 g/dL (3.9-5) L 06/14/21 00:01 Albumin/Globulin Ratio 0.9 % 06/14/21 00:01 Lipase 49 units/L (13-60) 06/14/21 00:01 Vitamin B12 > 2000 pg/mL (211-911) H 06/16/21 08:00 Urine Color Nga (Yellow) 06/14/21 Unknown Urine Turbidity Slightly-cloudy (Clear) 06/14/21 Unknown Urine pH 6.0 (5.0-7.0) 06/14/21 Unknown Ur Specific [place] 1.016 (1.003-1.030) 06/14/21 Unknown Urine Protein 30 mg/dl mg/dL (Negative) 06/14/21 Unknown Urine Glucose (UA) Neg mg/dL (Negative) 06/14/21 Unknown Urine Ketones Neg mg/dL (Negative) 06/14/21 Unknown Urine Blood Mod (Negative) 06/14/21 Unknown Urine Nitrite Pos (Negative) 06/14/21 Unknown Urine Bilirubin Neg (Negative) 06/14/21 Unknown Urine Urobilinogen 4.0 mg/dL (<2.0) 06/14/21 Unknown Ur Leukocyte Esterase Sm (Negative) 06/14/21 Unknown Urine WBC (Auto) 31.0 /HPF (0.0-6.0) H 06/14/21 Unknown Urine RBC (Auto) 1.0 /HPF (0.0-6.0) 06/14/21 Unknown U Epithel Cells (Auto) < 1.0 /HPF (0-13.0) 06/14/21 Unknown Urine Bacteria (Auto) 1+ /HPF (Negative) 06/14/21 Unknown Vancomycin Trough 7.4 ug/mL (5.0-20.0) 06/16/21 08:00 Coronavirus (PCR) Negative (Negative) 06/16/21 10:00 Microbiology: Microbiology 06/17/21 06:56 Peripheral/Venous Blood Culture - Preliminary Culture in Progress 06/17/21 06:01 Peripheral/Venous Blood Culture - Preliminary Culture in Progress 06/14/21 04:30 Peripheral/Venous Blood Culture - Final Staphylococcus Aureus 06/14/21 04:30 Peripheral/Venous Blood Culture - Final Staphylococcus Aureus 06/14/21 Unknown Urine,Clean Catch Urine Culture - Final Staphylococcus Aureus Banks/IV: Voiding Method Indwelling Catheter Active Medications - Current Medications Current Medications: Generic Name Dose Route Start Last Admin Trade Name Freq PRN Reason Stop Dose Admin Acetaminophen 650 mg 06/14/21 04:30 Acetaminophen 325 Mg Tab PO Q4H PRN Pain MILD(1-3)/Fever >100.5/RIGGINS Carvedilol 12.5 mg 06/15/21 22:00 06/17/21 11:02 Carvedilol 12.5 Mg Tab PO 12.5 mg BID ALESSIO Administration Hydralazine HCl 20 mg 06/15/21 19:59 06/15/21 21:11 Hydralazine 20 Mg/1 Ml Inj IV 20 mg Q4HR PRN Administration high bp Sodium Chloride 1,000 mls @ 125 mls/hr 06/14/21 04:30 06/17/21 04:24 Nacl 0.9% 1000 Ml IV 125 mls/hr DIRECT ALESSIO Administration Vancomycin HCl 1,500 mg/ 530 mls @ 333.333 mls/hr 06/16/21 11:00 06/17/21 11:04 Sodium Chloride IV 333.333 mls/hr Q12H ALESSIO Administration Lorazepam 2 mg 06/14/21 04:30 06/15/21 18:15 Lorazepam 2 Mg/Ml Vial IV 2 mg Q1H PRN Administration CIWA-Ar 8-15 Lorazepam 4 mg 06/14/21 04:30 Lorazepam 2 Mg/Ml Vial IV Q1H PRN CIWA-Ar 16-25 Lorazepam 4 mg 06/14/21 04:30 Lorazepam 2 Mg/Ml Vial IV Q15MIN PRN CIWA-Ar >25 Magnesium Hydroxide 30 ml 06/14/21 04:30 06/15/21 15:44 Magnesium Hydroxide (Mom) Oral Liqd Udc PO 30 ml Q4H PRN Administration Constipation Morphine Sulfate 2 mg 06/14/21 04:30 06/16/21 21:57 Morphine 2 Mg/1 Ml Inj IV 2 mg Q4H PRN Administration Pain, Moderate (4-6) Morphine Sulfate 4 mg 06/14/21 04:30 Morphine 4 Mg/1 Ml Inj IV Q4H PRN Pain , Severe (7-10) Nicotine 21 mg 06/15/21 20:00 06/17/21 11:01 Nicotine 21 Mg/24 Hr Patch TD 21 mg QDAY ALESSIO Administration Ondansetron HCl 4 mg 06/14/21 04:30 06/16/21 16:39 Ondansetron 4 Mg/2 Ml Inj IV 4 mg Q8H PRN Administration Nausea And Vomiting Sodium Chloride 10 ml 06/14/21 10:00 06/17/21 11:02 Sodium Chloride 0.9% 10 Ml Flush Syringe IV 10 ml BID ALESSIO Administration Sodium Chloride 10 ml 06/14/21 04:30 Sodium Chloride 0.9% 10 Ml Flush Syringe IV PRN PRN LINE FLUSH
[2021-06-17] MEDS: MAGNESIUM HYDROXIDE (MOM) ORAL LIQD UDC PO PRN (13:55)
[2021-06-17] MEDS ORDERED: MAGNESIUM CITRATE 300 ML ORAL LIQD PO ONE (14:30)
[2021-06-17] MEDS: MORPHINE 2 MG/1 ML INJ IV PRN (15:29)
--- NOTE | 2021-06-17 15:38 | XRay Report ---
XR abdomen 1V ap INDICATION: verify NGT placement. COMPARISON: None available. FINDINGS: The tip of the esophagogastric tube projects over the body of the stomach. Signer Name: Reilly Hernandez MD Signed: 06/17/2021 3:34 PM Workstation Name: [id number]
--- NOTE | 2021-06-17 16:52 | Progress Note ---
Assessment and Plan Plan recommend transfer to [facility] for higher level of care, Neuro-ICU care and antibiotic therapy patient will likely require extensive neck debridement with ENT and multi-level cervical surgery please notify if questions/concerns full consult note to follow Subjective Date of service: 06/17/21 Principal diagnosis: Cervical spine abscess Interval history: NSGY update: imaging studies revealed- demonstrating large anterior cervical epidural abscess from C4-5 to C7-T1. This results in cord compression and canal stenosis. Pt seen and examined at bedside. He reports improved strength over the past few days. His pain is manageable. Objective - Vital Sign Vital Signs - 12hr 06/17/21 06/17/21 05:40 12:19 Temperature 98.7 F 97.5 F L Pulse Rate 79 87 Respiratory 20 18 Rate Blood Pressure 139/84 134/87 O2 Sat by Pulse 97 94 Oximetry - Laboratory Findings CBC and BMP: 06/17/21 06:01 06/17/21 06:01 Abnormal Lab Findings: Abnormal Labs 06/14/21 06/14/21 06/14/21 00:01 00:01 04:30 WBC 18.6 H RBC Hgb Hct MCV 97 H MCH 34 H MCHC 35 H RDW 12.1 L Plt Count Lymph % (Auto) [place] % (Auto) Lymph # (Auto) [place] # (Auto) Seg Neutrophils % Seg Neuts % (Manual) 90.0 H Lymphocytes % (Manual) 5.0 L Seg Neutrophils # Seg Neutrophils # Man 16.7 H Lymphocytes # (Manual) 0.9 L Monocytes # (Manual) 0.9 H PT Sodium 122 L Potassium 3.4 L Chloride 79.0 L BUN Creatinine 0.4 L Glucose 122 H POC Glucose Calcium 7.6 L Magnesium 2.40 H Direct Bilirubin 0.3 H AST 112 H ALT 111 H Albumin 3.1 L Vitamin B12 Urine WBC (Auto) 06/14/21 06/15/21 06/15/21 Unknown 05:32 05:32 WBC 17.7 H RBC 3.38 L Hgb 11.1 L Hct 33.4 L MCV 99 H MCH 33 H MCHC RDW 12.1 L Plt Count 468 H Lymph % (Auto) 4.1 L [place] % (Auto) 8.8 H Lymph # (Auto) 0.7 L [place] # (Auto) 1.6 H Seg Neutrophils % 86.5 H Seg Neuts % (Manual) Lymphocytes % (Manual) Seg Neutrophils # 15.3 H Seg Neutrophils # Man Lymphocytes # (Manual) Monocytes # (Manual) PT Sodium 129 L D Potassium 3.5 L Chloride 88.0 L BUN 8 L Creatinine 0.3 L Glucose 104 H POC Glucose Calcium 7.3 L Magnesium Direct Bilirubin AST ALT Albumin Vitamin B12 Urine WBC (Auto) 31.0 H 06/15/21 06/16/21 06/16/21 19:30 08:00 08:00 WBC 21.5 H RBC Hgb Hct MCV 100 H MCH 33 H MCHC RDW 12.2 L Plt Count 597 H Lymph % (Auto) [place] % (Auto) Lymph # (Auto) [place] # (Auto) Seg Neutrophils % Seg Neuts % (Manual) 87.0 H Lymphocytes % (Manual) 2.0 L Seg Neutrophils # Seg Neutrophils # Man 18.7 H Lymphocytes # (Manual) 0.4 L Monocytes # (Manual) 0.9 H PT 15.4 H Sodium Potassium Chloride BUN Creatinine Glucose POC Glucose 149 H Calcium Magnesium Direct Bilirubin AST ALT Albumin Vitamin B12 Urine WBC (Auto) 06/16/21 06/16/21 06/17/21 08:00 08:00 06:01 WBC 17.3 H RBC 3.55 L Hgb 11.6 L Hct 35.0 L MCV 99 H MCH 33 H MCHC RDW 12.2 L Plt Count 594 H Lymph % (Auto) [place] % (Auto) Lymph # (Auto) [place] # (Auto) Seg Neutrophils % Seg Neuts % (Manual) Lymphocytes % (Manual) Seg Neutrophils # Seg Neutrophils # Man Lymphocytes # (Manual) Monocytes # (Manual) PT Sodium 130 L Potassium Chloride 89.5 L BUN Creatinine 0.3 L Glucose 171 H POC Glucose Calcium 8.0 L Magnesium Direct Bilirubin AST ALT Albumin Vitamin B12 > 2000 H Urine WBC (Auto) 06/17/21 06:01 WBC RBC Hgb Hct MCV MCH MCHC RDW Plt Count Lymph % (Auto) [place] % (Auto) Lymph # (Auto) [place] # (Auto) Seg Neutrophils % Seg Neuts % (Manual) Lymphocytes % (Manual) Seg Neutrophils # Seg Neutrophils # Man Lymphocytes # (Manual) Monocytes # (Manual) PT Sodium 130 L Potassium Chloride 91.7 L BUN Creatinine 0.3 L Glucose 107 H POC Glucose Calcium 7.9 L Magnesium Direct Bilirubin AST ALT Albumin Vitamin B12 Urine WBC (Auto)
--- NOTE | 2021-06-17 18:52 | Consultation ---
History of Present Illness - Reason for Consult Consult date: 06/17/21 - History of Present Illness 55-year-old male past medical history none presented to hospital complaining of generalized weakness for the past 2 weeks. Associated with this he complains of fatigue, dizziness, shortness of breath. Family also reported that he was having some altered mental status over this timeframe. His weakness includes motor weakness, and he was unable to move his legs without assistance. As res ult he had a fall a few days prior to admission. Febrile to 100.6, white count 17.7 on admission. Blood cultures with MSSA. Imaging personally reviewed: TTE: No evidence of vegetations Cervical spine MRI: Ventral epidural abscess from C4-C7 Review of Systems: Bold if positive, otherwise negative General: fevers, chills, rigors HEENT: visual disturbance, diplopia, eye pain Respiratory: cough, sputum, hemoptysis, shortness of breath Cardiovascular: chest pain, syncope Gastrointestinal: nausea, vomiting, diarrhea, abdominal pain Genitourinary: dysuria, hematuria, flank pain Musculoskeletal: neck pain, back pain, joint pain, edema Neurologic: headaches, seizures Hematologic: easy bruising or bleeding Endocrine: night sweats, acute weight loss Skin: rash, jaundice, redness Psychiatric: suicidal, homicidal ideation Past History Past Medical History: No medical history Past Surgical History: No surgical history Social history: alcohol abuse (Drinks alcohol almost on a daily basis) Family history: no significant family history Medications and Allergies Allergies Allergy/AdvReac Type Severity Reaction Status Date / Time No Known Allergies Allergy Verified 06/13/21 20:55 Home Medications Medication Instructions Recorded Confirmed Last Taken Type No Known Home Medications [No 06/14/21 06/14/21 Unknown History Reported Home Medications] Active Meds: Active Medications Acetaminophen (Acetaminophen 325 Mg Tab) 650 mg PO Q4H PRN PRN Reason: Pain MILD(1-3)/Fever >100.5/RIGGINS Carvedilol (Carvedilol 12.5 Mg Tab) 12.5 mg PO BID ALESSIO Last Admin: 06/17/21 11:02 Dose: 12.5 mg Hydralazine HCl (Hydralazine 20 Mg/1 Ml Inj) 20 mg IV Q4HR PRN PRN Reason: high bp Last Admin: 06/15/21 21:11 Dose: 20 mg Sodium Chloride (Nacl 0.9% 1000 Ml) 1,000 mls @ 125 mls/hr IV DIRECT [facility] Last Admin: 06/17/21 04:24 Dose: 125 mls/hr Vancomycin HCl 1,500 mg/ (Sodium Chloride) 530 mls @ 333.333 mls/hr IV Q12H [facility] Last Admin: 06/17/21 11:04 Dose: 333.333 mls/hr Lorazepam (Lorazepam 2 Mg/Ml Vial) 2 mg IV Q1H PRN PRN Reason: CIWA-Ar 8-15 Last Admin: 06/15/21 18:15 Dose: 2 mg Lorazepam (Lorazepam 2 Mg/Ml Vial) 4 mg IV Q1H PRN PRN Reason: CIWA-Ar 16-25 Lorazepam (Lorazepam 2 Mg/Ml Vial) 4 mg IV Q15MIN PRN PRN Reason: CIWA-Ar >25 Magnesium Hydroxide (Magnesium Hydroxide (Mom) Oral Liqd Udc) 30 ml PO Q4H PRN PRN Reason: Constipation Last Admin: 06/17/21 13:55 Dose: 30 ml Morphine Sulfate (Morphine 2 Mg/1 Ml Inj) 2 mg IV Q4H PRN PRN Reason: Pain, Moderate (4-6) Last Admin: 06/17/21 15:29 Dose: 2 mg Morphine Sulfate (Morphine 4 Mg/1 Ml Inj) 4 mg IV Q4H PRN PRN Reason: Pain , Severe (7-10) Nicotine (Nicotine 21 Mg/24 Hr Patch) 21 mg TD QDAY [facility] Last Admin: 06/17/21 11:01 Dose: 21 mg Ondansetron HCl (Ondansetron 4 Mg/2 Ml Inj) 4 mg IV Q8H PRN PRN Reason: Nausea And Vomiting Last Admin: 06/16/21 16:39 Dose: 4 mg Sodium Chloride (Sodium Chloride 0.9% 10 Ml Flush Syringe) 10 ml IV BID [facility] Last Admin: 06/17/21 11:02 Dose: 10 ml Sodium Chloride (Sodium Chloride 0.9% 10 Ml Flush Syringe) 10 ml IV PRN PRN PRN Reason: LINE FLUSH Physical Examination - Constitutional Vitals: Vital Signs Temp Pulse Resp BP Pulse Ox 98.0 F 87 18 133/80 94 06/17/21 16:45 06/17/21 16:45 06/17/21 16:45 06/17/21 16:45 06/17/21 16:45 Temperature -Last 24 Hours Temperature 98.0 F Temperature 97.5 F Temperature 98.7 F Temperature 98.2 F Results - Labs CBC & Chem 7: 06/17/21 06:01 06/17/21 06:01 Labs: Abnormal lab results 06/17/21 06/17/21 Range/Units 06:01 06:01 WBC 17.3 H (4.5-11.0) K/mm3 RBC 3.55 L (3.65-5.03) M/mm3 Hgb 11.6 L (11.8-15.2) gm/dl Hct 35.0 L (35.5-45.6) % MCV 99 H (84-94) fl MCH 33 H (28-32) pg RDW 12.2 L (13.2-15.2) % Plt Count 594 H (140-440) K/mm3 Sodium 130 L (137-145) mmol/L Chloride 91.7 L (98-107) mmol/L Creatinine 0.3 L (0.8-1.3) mg/dL Glucose 107 H (75-100) mg/dL Calcium 7.9 L (8.4-10.2) mg/dL
--- NOTE | 2021-06-17 18:56 | Progress Note ---
Assessment and Plan Cultures: Blood culture staph aureus Wound culture staph aureus Blood culture 06/18/2023 no growth so far A/P: 55-year-old man no known past medical history admitted with: #Acute sepsis: Present with fever leukocytosis. Secondary to gram-positive bacteremia and psoas abscess #Staph aureus bacteremia: Secondary to psoas abscess. MSSA #Left psoas abscess: Evaluated by IR, not amenable to percutaneous drainage, only aspiration. His sepsis resolved with antibiotics only, and if blood cultures clear agree no need for aspiration. If blood cultures remain persistently positive, would recommend aspiration for source control. #Cervical spine abscess: Neurosurgery now on board, recommending transfer to [place] for higher level care. Recs: -Stop stop vancomycin given MSSA -Started nafcillin 2g q4h given its improved [employer] penetration. Can also be given as continuous infusion -Follow-up repeat blood cultures -Pending transfer to [place] Thank you for the consult, we will continue to follow. Kimani Salazar MD [facility] O: [phone] F: [phone] Subjective Date of service: 06/17/21 Principal diagnosis: Cervical spine abscess Interval history: Now with cervical spine abscess. Afebrile, white count 17.3. Objective - Exam Narrative Exam: Physical Exam: Constitutional: Alert, cooperative. No acute distress Head, Ears, Nose: Normocephalic, atraumatic. External ears, nose normal Eyes: Conjunctivae/corneas clear. No icterus. No ptosis. Neck: Supple, no meningeal signs Oral: dentition fair, no thrush Cardiovascular: S1, S2 normal. Respiratory: Good air entry, clear to auscultation bilaterally GI: Soft, non-tender; bowel sounds normal. No peritoneal signs. Musculoskeletal: No pedal edema, no cyanosis. Skin: No rash or abscess Hem/Lymphatic: No palpable cervical or supraclavicular nodes. No lymphangitis Psych: Mood ok. Affect normal Neurological: Awake, alert, oriented. No gross abnormality - Constitutional Vitals: Vital Signs Temp Pulse Resp BP Pulse Ox 98.0 F 87 18 133/80 94 06/17/21 16:45 06/17/21 16:45 06/17/21 16:45 06/17/21 16:45 06/17/21 16:45 Temperature -Last 24 Hours Temperature 98.0 F Temperature 97.5 F Temperature 98.7 F Temperature 98.2 F - Labs CBC & Chem 7: 06/17/21 06:01 06/17/21 06:01 Labs: Abnormal lab results 06/17/21 06/17/21 Range/Units 06:01 06:01 WBC 17.3 H (4.5-11.0) K/mm3 RBC 3.55 L (3.65-5.03) M/mm3 Hgb 11.6 L (11.8-15.2) gm/dl Hct 35.0 L (35.5-45.6) % MCV 99 H (84-94) fl MCH 33 H (28-32) pg RDW 12.2 L (13.2-15.2) % Plt Count 594 H (140-440) K/mm3 Sodium 130 L (137-145) mmol/L Chloride 91.7 L (98-107) mmol/L Creatinine 0.3 L (0.8-1.3) mg/dL Glucose 107 H (75-100) mg/dL Calcium 7.9 L (8.4-10.2) mg/dL
[2021-06-17 21:59] VITALS: BP 131/74
[2021-06-17] MEDS: NAFCILLIN 2 GM in SODIUM CHLORIDE 0.9% 100 ML IV SCH ×2 (22:19→23:54)
--- NOTE | 2021-06-19 07:07 | Discharge Summary ---
Providers - Providers Date of Admission: 06/14/21 04:30 Attending physician: JOSEPH MORENO MD 06/14/21 04:44 Consult to Physician [CONS] Routine Comment: Consulting Provider: BRYON VERGARA Physician Instructions: Reason For Exam: ? Psoas abscess (left) 06/14/21 04:58 Consult to Physician [CONS] Routine Comment: Consulting Provider: LOKI SEGOVIA Physician Instructions: Reason For Exam: Elevated liver enzymes 06/14/21 12:11 Consult to Physician [CONS] Routine Comment: Consulting Provider: TONIA GONZALES Physician Instructions: Reason For Exam: psoas abscess 06/15/21 07:49 Consult to Physician [CONS] Routine Comment: Consulting Provider: RAKESH DIETRICH Physician Instructions: Reason For Exam: psoas abscess Consult to Physician [CONS] Routine Comment: Consulting Provider: MONICA PAREDES Physician Instructions: Reason For Exam: progressive weakness, AMS 06/16/21 11:12 Consult to Physician [CONS] Routine Comment: Consulting Provider: RYNE QUESADA Physician Instructions: Reason For Exam: hypoxic respiratory failure 06/17/21 13:43 Consult to Physician [CONS] Routine Comment: Consulting Provider: ATUL KERR II Physician Instructions: Reason For Exam: ventral abscess Primary care physician: USAMA GARCIA Hospitalization Condition: Poor Disposition: 51 HOSPICE/MEDICAL FACILITY Exam - Constitutional Vitals: Temp Pulse Resp BP Pulse Ox 97.6 F 87 18 131/74 98 06/17/21 21:57 06/17/21 21:57 06/17/21 21:57 06/17/21 21:57 06/17/21 22:00 Plan Follow up with: USAMA GARCIA MD [Primary Care Provider] - 3-5 Days
[2021-06-20 18:06] LABS: Vitamin D, 25-OH, D2 <4 ng/mL
== END 2021-06-18 02:09 | disposition short-term general hospital (02) | DRG 871 ==
LOC: ED 19:49 → 3A 06-14 04:30
PROVIDERS: ADMIT Internal Medicine Geriatric Medicine; ATTEND Internal Medicine
DX: A41.01 Sepsis due to Methicillin susceptible Staphylococcus aureus (principal); K68.12 Psoas muscle abscess; J96.01 Acute respiratory failure with hypoxia; J69.0 Pneumonitis due to inhalation of food and vomit; E87.1 Hypo-osmolality and hyponatremia; N13.6 Pyonephrosis; L02.11 Cutaneous abscess of neck; Z20.822 Contact with and (suspected) exposure to COVID-19; F10.10 Alcohol abuse, uncomplicated; E87.6 Hypokalemia
CPT/HCPCS: 36415; 70450; 70553; 71045; 72156; 74018; 74177; 80048; 80076; 80202; 81001; 82140; 82306; 82607; 82962; 83690; 83735; 84425; 84484; 85007; 85025; 85027; 85610; 87040; 87076; 87086; 87186; 93005; 93306; 94640; 96360; 96361; 99285; 99406; G0378; J3490; J7517; A9575; C8929; J0360; J0692; J2060; J2270; J2405; J3370; J3480; J7030; J7040; Q9967; U0003